=== PATIENT | male | born 1965 | race Caucasian/White ===

== ENCOUNTER 2016-07-23 07:39 | Observation (INO) ==
[2016-07-23] MEDS ORDERED: 0.9 % Sodium Chloride 1,000 ML IVC ONE (07:59)
[2016-07-23] MEDS ORDERED: Ondansetron 4 MG/2 ML VIAL IVP ONE (07:59)
--- NOTE | 2016-07-23 08:01 | Emergency Department Note ---
Disposition Clinical Impression: Dizziness, JERRY (acute kidney injury), Transaminitis, Anemia Hypotension Qualifiers: Hypotension type: unspecified hypotension type Qualified Code(s): I95.9 - Hypotension, unspecified Disposition: Admitted As Inpatient Condition: Fair General Adult HPI - General Chief complaint: ED Dizziness Stated complaint: "dizzy, tingles, weak" Time Seen by Provider: 07/23/16 07:49 Source: patient Mode of arrival: ambulatory Limitations: no limitations Nursing Notes Reviewed: Yes Vital Signs Reviewed: Yes - History of Present Illness HPI Narrative: 50-year-old male history of hypertension diabetes presents for evaluation of "dizziness and tingling". Patient states that symptoms started just prior to arrival. Notes that dizziness is described as more weakness and feels like he is going to pass out. No room spinning. Reports no recent falls. States he was recently started on antibiotic which he was not able to recall and family states that it was ciprofloxacin for presumed flulike illness. Patient denies any nausea or vomiting. No chest pain or short of breath. Reports no other new medication changes. Pain Scale: 0 - Related Data Home Medications Medication Instructions Recorded Confirmed Albuterol Sulfate [Proair Hfa] 2 puff IH Q4H PRN 06/28/15 07/23/16 Fluticasone Propionate Nasal 100 mcg NS DAILY 06/28/15 07/23/16 [Flonase] Montelukast [Singulair] 10 mg PO DAILY 06/28/15 07/23/16 Omeprazole [PriLOSEC] 40 mg PO DAILY 06/28/15 07/23/16 Ranitidine HCl [Zantac] 300 mg PO BID 06/28/15 07/23/16 Tizanidine HCl [Zanaflex] 4 mg PO BID PRN 06/28/15 07/23/16 Buspirone HCl [Buspar] 10 mg PO BID 07/23/16 07/23/16 Cetirizine HCl [All Day Allergy] 10 mg PO DAILY 07/23/16 07/23/16 Ferrous Sulfate [Iron] 325 mg PO DAILY 07/23/16 07/23/16 Insulin Glargine,Hum.rec.anlog 70 unit SQ HS 07/23/16 07/23/16 [Lantus Solostar] Lisinopril/Hydrochlorothiazide 1 each PO DAILY 07/23/16 07/23/16 [Zestoretic 20-12.5 mg Tablet] Metformin HCl [Metformin HCl ER] 2,000 mg PO DAILY 07/23/16 07/23/16 Pravastatin Sodium [Pravachol] 40 mg PO DAILY 07/23/16 07/23/16 Propranolol HCl 40 mg PO BID 07/23/16 07/23/16 Sertraline [Zoloft] 50 mg PO DAILY 07/23/16 07/23/16 Sucralfate [Carafate] 1 gm PO BID 07/23/16 07/23/16 Previous Rx's Medication Instructions Recorded Aspirin 81 mg PO DAILY tab.chew 06/28/15 Lovastatin 20 mg PO DAILY #30 tablet 06/28/15 Metoprolol [Lopressor] 25 mg PO BID #60 tablet 06/28/15 Benzonatate [Tessalon] 200 mg PO TID PRN #20 capsule 07/21/16 Ciprofloxacin [Cipro] 500 mg PO BID 10 Days 07/21/16 MetroNIDAZOLE [Flagyl] 500 mg PO TID 10 Days 07/21/16 Tramadol HCl [Ultram] 50 mg PO BID PRN #4 tab 07/21/16 Allergies Allergy/AdvReac Type Severity Reaction Status Date / Time No Known Allergies Allergy Verified 07/23/16 07:43 All systems ED: reviewed and negative except as stated. Constitutional: Reports: as per HPI, fever Eyes: Reports: as per HPI ENT ED: Reports: as per HPI Cardiovascular: Reports: as per HPI. Denies: chest pain Respiratory: Reports: as per HPI. Denies: dyspnea Gastrointestinal: Reports: as per HPI. Denies: abdominal pain, nausea, vomiting Genitourinary: Reports: as per HPI Musculoskeletal: Reports: as per HPI Integumentary: Reports: as per HPI Neurological: Reports: as per HPI Psychiatric: Reports: as per HPI Endocrine: Reports: as per HPI Hematological/Lymphatic: Reports: as per HPI Past Medical History - Past Medical History Medical history: Reports: GERD, hyperlipidemia, hypertension Surgical history: Reports: knee replacement, other Psychiatric history: Reports: no psych history - Social History Smoking Status: Never smoker Smokeless Tobacco Status: No Alcohol use: Reports: heavy, recent Drug use: Reports: none Physical Exam - General Limitations: no limitations General appearance: alert, in no apparent distress - Head Head exam: atraumatic, normocephalic, normal inspection - Eye Eye exam: Present: normal appearance, PERRL, EOMI. Absent: nystagmus - ENT ENT exam: normal exam, mucous membranes moist - Neck Neck exam: Present: normal inspection, trachea midline - Chest Chest inspection: Present: normal inspection, symmetric chest wall rise - Respiratory Respiratory exam: Present: normal lung sounds bilaterally. Absent: respiratory distress - Cardiovascular Cardiovascular exam: Present: regular rate, normal rhythm - Abdominal Exam Abdominal exam: Present: soft, Non-Tender. Absent: tenderness - Extremities Exam Extremities exam: Present: normal inspection. Absent: pedal edema - Expanded Lower Extremity Exam Neurovascular/Tendon exam: Present: normal capillary refill - Neurological Exam Neurological exam: Present: alert, oriented X3 - Skin Skin exam: Present: warm, dry, intact, normal color Course Course Narrative: Patient seen and examined. Patient's dizziness is more presyncopal. Patient has a nonfocal neurologic exam. Patient will get EKG, chest x-ray, troponins as well as basic lab work. Patient was recently started on antibiotic ciprofloxacin for infection which he was not entirely sure of. Possibly side effect related. - Reevaluation(s) Reevaluation #1: Patient is resting comfortably. No acute distress. Time: 09:21 Vital Signs Temperature 97.7 F 07/23/16 07:40 Pulse Rate 61 07/23/16 07:40 Respiratory Rate 17 07/23/16 07:40 Blood Pressure 91/56 07/23/16 07:40 O2 Sat by Pulse Oximetry 99 07/23/16 07:40 Temperature 97.7 F 07/23/16 15:33 Pulse Rate 71 07/23/16 15:33 Respiratory Rate 16 07/23/16 15:33 Blood Pressure 128/77 07/23/16 15:33 O2 Sat by Pulse Oximetry 93 07/23/16 15:33 Oxygen Delivery Oxygen Delivery Room Air Medical Decision Making - [facility] Narrative Medical decision making narrative: 50-year-old male is for evaluation of dizziness and generally not feeling well. Patient had a nonfocal neurologic exam. Dizziness appear to be more presyncope. Patient typically has high blood pressures documented from chart review. Patient presented with hypotension with systolics in the 90s. He did respond to fluid boluses. Patient had screening lab work looking for sources of infection. Head CT was not obtained because it is a nonfocal exam. Patient had chest x-ray was EKG and troponin. Patient continued to not feel well. at bedside is persistent that there is something wrong and he has been here before with similar symptoms with out any specific diagnosis. Given this information the patient will be admitted to the hospital service for further evaluation and monitoring. CT of the chest and pelvis was performed in the emergency department. Those findings were obtained upstairs on admission. - Lab Data Lab results reviewed: Yes I reviewed the patient's lab results. Result diagrams: 07/23/16 08:10 07/23/16 08:10 Lab Results 07/23/16 07/23/16 07/23/16 Range/Units 08:10 08:10 08:10 WBC 4.9 (4.3-11.1) K/mcL RBC 4.22 (4.19-5.50) M/mcL Hgb 12.5 L (12.9-16.9) g/dL Hct 37.7 (37.5-50.1) % MCV 89.3 (83.0-100.0) fL MCH 29.6 (28.0-33.3) pg MCHC 33.2 (31.6-35.5) g/dL RDW 13.9 (11.5-14.5) % Plt Count 171 (140-400) K/mcL MPV 11.1 (9.4-12.4) fL Seg Neutrophils % 54.0 % Lymphocytes % 40.0 % Monocytes % 2.0 % Eosinophils % 2.0 % Metamyelocytes % 2.0 H (0) % Neutrophils # 2.7 (1.6-8.9) K/mcL Lymphocytes # 2.0 (0.6-4.6) K/mcL Monocytes # 0.1 (0.0-1.3) K/mcL Eosinophils # 0.1 (0.0-0.6) K/mcL Hypersegmented Neuts Present A (Not Present) Reactive Lymphocytes Present A (Not Present) Platelet Estimate Normal (Normal) Polychromasia 1+ A (Not Present) Macrocytosis Present A (Not Present) Spherocytes 1+ A (Not Present) Sodium 135 L (136-145) mEq/L Potassium 4.3 (3.5-4.5) mEq/L Chloride 102 (98-109) mEq/L Carbon Dioxide 23 (19-29) mEq/L BUN 23 (8-26) mg/dL Creatinine 1.68 H (0.72-1.25) mg/dL Est GFR ( Amer) 53 L (> 60) Est GFR (Non-Af Amer) 44 L (> 60) BUN/Creatinine Ratio 14 (6-26) Glucose 149 H (70-99) mg/dL Calculated Osmolality 286 (280-300) Lactic Acid (0.5-2.2) mmol/L Calcium 9.0 (8.6-10.8) mg/dL Total Bilirubin 0.5 (0.2-1.2) mg/dL AST 139 H (5-34) Units/L ALT 152 H (0-55) Units/L Alkaline Phosphatase 140 H (38-126) Units/L Troponin I 0.00 (0-0.03) ng/mL Serum Total Protein 7.4 (6.0-8.3) g/dL Albumin 3.3 L (3.5-5.0) g/dL Globulin 4.1 H (2.4-3.5) g/dL Albumin/Globulin Ratio 0.8 L (1.1-2.2) TSH 4.996 H (0.350-4.840) mcIU/mL Free T4 0.97 (0.70-1.48) ng/dl Random Cortisol 14.3 mcg/dl Urine Color (Yellow) Urine Clarity (Clear) Urine pH (5.0-8.0) pH Units Ur Specific Godley (1.010-1.025) Urine Protein (Neg-Trace) mg/dL Urine Glucose (UA) (Normal) mg/dL Urine Ketones (Negative) mg/dL Urine Blood (Negative) Urine Nitrite (Negative) Urine Bilirubin (Negative) Urine Urobilinogen (Normal) mg/dL Ur Leukocyte Esterase (Negative) Urine Microscopic RBC (0-3) per hpf Urine Microscopic WBC (0-3) per hpf Ur Squamous Epith Cells (None-Few) per lpf Urine Bacteria (None-Few) per hpf Hyaline Casts (None-Few) per lpf 07/23/16 07/23/16 Range/Units 08:35 09:45 WBC (4.3-11.1) K/mcL RBC (4.19-5.50) M/mcL Hgb (12.9-16.9) g/dL Hct (37.5-50.1) % MCV (83.0-100.0) fL MCH (28.0-33.3) pg MCHC (31.6-35.5) g/dL RDW (11.5-14.5) % Plt Count (140-400) K/mcL MPV (9.4-12.4) fL Seg Neutrophils % % Lymphocytes % % Monocytes % % Eosinophils % % Metamyelocytes % (0) % Neutrophils # (1.6-8.9) K/mcL Lymphocytes # (0.6-4.6) K/mcL Monocytes # (0.0-1.3) K/mcL Eosinophils # (0.0-0.6) K/mcL Hypersegmented Neuts (Not Present) Reactive Lymphocytes (Not Present) Platelet Estimate (Normal) Polychromasia (Not Present) Macrocytosis (Not Present) Spherocytes (Not Present) Sodium (136-145) mEq/L Potassium (3.5-4.5) mEq/L Chloride (98-109) mEq/L Carbon Dioxide (19-29) mEq/L BUN (8-26) mg/dL Creatinine (0.72-1.25) mg/dL Est GFR ( Amer) (> 60) Est GFR (Non-Af Amer) (> 60) BUN/Creatinine Ratio (6-26) Glucose (70-99) mg/dL Calculated Osmolality (280-300) Lactic Acid 1.8 (0.5-2.2) mmol/L Calcium (8.6-10.8) mg/dL Total Bilirubin (0.2-1.2) mg/dL AST (5-34) Units/L ALT (0-55) Units/L Alkaline Phosphatase (38-126) Units/L Troponin I (0-0.03) ng/mL Serum Total Protein (6.0-8.3) g/dL Albumin (3.5-5.0) g/dL Globulin (2.4-3.5) g/dL Albumin/Globulin Ratio (1.1-2.2) TSH (0.350-4.840) mcIU/mL Free T4 (0.70-1.48) ng/dl Random Cortisol mcg/dl Urine Color Dark Yellow (Yellow) Urine Clarity Cloudy A (Clear) Urine pH 5.5 (5.0-8.0) pH Units Ur Specific [place]ley 1.021 (1.010-1.025) Urine Protein Trace (Neg-Trace) mg/dL Urine Glucose (UA) Normal (Normal) mg/dL Urine Ketones Trace H (Negative) mg/dL Urine Blood Negative (Negative) Urine Nitrite Negative (Negative) Urine Bilirubin Small H (Negative) Urine Urobilinogen Normal (Normal) mg/dL Ur Leukocyte Esterase Small H (Negative) Urine Microscopic RBC 0-3 (0-3) per hpf Urine Microscopic WBC 3-5 H (0-3) per hpf Ur Squamous Epith Cells Many H (None-Few) per lpf Urine Bacteria Few (None-Few) per hpf Hyaline Casts Few (None-Few) per lpf - Radiology Data Radiology results reviewed: Yes I reviewed the patient's radiology results. Chest X-Ray 07/23/16 07:59 IMPRESSION: No acute pulmonary finding. Stable mild cardiomegaly. D/ / Vijay Simpson MD / Vijay Simpson MD Interpreting Provider: Vijay Simpson MD Abdomen/Pelvis CT 07/23/16 15:30 IMPRESSION: 1. No acute intra-abdominal or intrapelvic process. 2. No acute bowel inflammation or obstruction. 3. No urinary stones or hydronephrosis. 4. Hepatic steatosis. D/ / 07/23/2016 16:35:11 Wesley Copeland MD / Karli Rodriguez Interpreting Provider: Wesley Copeland MD Chest CT 07/23/16 15:30 IMPRESSION: 1. Multiple scattered nodular ground-glass opacities within the bilateral upper lobes are most likely infectious or inflammatory in etiology, and most likely represent an acute multifocal pneumonia. However, suggest appropriate clinical treatment, and short-term chest CT follow-up in 6-8 weeks to ensure resolution of these ground-glass nodular opacities. 2. Additional scattered subcentimeter bibasilar pulmonary nodules most likely reflect benign granulomata. However, these will require long-term chest CT follow-up to ensure stability, as suggested below. 3. Mild mediastinal lymphadenopathy is likely benign and reactive in etiology. However, this should be followed to ensure stability. RECOMMENDATIONS: Fleischner Society guidelines for follow-up and management of incidentally detected pulmonary nodules: Multiple Solid Nodules: Nodule size equals 6-8 mm In a low-risk patient, CT at 3-6 months, then consider CT at 18-24 months. In a high-risk patient, CT at 3-6 months, then CT at 18-24 months. - Low risk patients include individuals with minimal or absent history of smoking and other known risk factors. - High risk patients include individuals with a history or smoking or known risk factors. Radiology 2017 http://pubs.rsna.org/doi/full/10.1148/radiol.2339834636 D/ / 07/23/2016 16:21:47 Wesley Copeland MD / Karli Rodriguez Interpreting Provider: Wesley Copeland MD - EKG Data EKG #1 EKG shows normal: sinus rhythm Rhythm: NSR [place]/QRS: normal When compared to previous EKG there are: no significant changes Interpretation: no acute changes, unchanged when compared to prior tracing (date ) Clementina - Clementina Situation: Demographics, MOA Background: Presenting Complaint Assessment: Vital Signs, Course and respsone to treatment, Patient/Family Expectation Recommendation: Barrier(s) to disposition, Recommendation based on pending studies, treatments, or consults Clementina Report Given to: Dr. Antoine Mcrae Repor Time: 11:24
[2016-07-23 08:20] LABS: Eosinophils # 0.1 K/mcL (0.0-0.6); Hematocrit 37.7 % (37.5-50.1); Hemoglobin 12.5 g/dL (12.9-16.9); Mean Corpuscular HGB Conc 33.2 g/dL (31.6-35.5); Mean Corpuscular Hemoglobin 29.6 pg (28.0-33.3); Mean Corpuscular Volume 89.3 fL (83.0-100.0); Mean Platelet Volume 11.1 fL (9.4-12.4); Platelet Count 171 K/mcL (140-400); Red Blood Count 4.22 M/mcL (4.19-5.50); Red Cell Distribution Width 13.9 % (11.5-14.5)
--- NOTE | 2016-07-23 08:22 | Emergency Department Note ---
START Narrative - START START: I examined this patient and my medical decision-making was reviewed with the ELEVATOR CONDUCTOR/PA/Advanced Practice Nurse/Resident Physician. I agree with the documented findings, disposition and treatment plan as described except to the extent set forth below. ED attending note: Patient seen with emergency medicine resident Dr. Serrano. Please see a copy of his note for details of the H&P, evaluation, management and disposition of this patient. We independently had [id number] contact with the patient Briefly: 50-year-old male history of elevated cholesterol and high blood pressure presents with near syncope feeling sick to his stomach and just weak and dizzy. This has been going on for several days he has been on Cipro for a URI of some sort. Patient is hypotensive 90 over 60s. Not diaphoretic or pale. EKG shows a sinus bradycardia in the 60s. Nonspecific ST-T changes neurologically nonfocal. Patient getting IV fluid bolus troponin lactate CMP. Provided 45 minutes critical care service for this patient. Disposition pending.
[2016-07-23 08:35] LABS: Alanine Aminotransferase 152 Units/L (0-55); Albumin 3.3 g/dL (3.5-5.0); Albumin/Globulin Ratio 0.8 (1.1-2.2); Alkaline Phosphatase 140 Units/L (38-126); Aspartate Amino Transferase 139 Units/L (5-34); BUN/Creatinine Ratio 14 (6-26); Bilirubin,Total 0.5 mg/dL (0.2-1.2); Blood Urea Nitrogen 23 mg/dL (8-26); Carbon Dioxide 23 mEq/L (19-29); Chloride 102 mEq/L (98-109); Globulin 4.1 g/dL (2.4-3.5); Glucose 149 mg/dL (70-99); Osmolality,Calculated 286 (280-300); Potassium 4.3 mEq/L (3.5-4.5); Sodium 135 mEq/L (136-145); Total Protein 7.4 g/dL (6.0-8.3); eGFR For African Americans 53 (> 60); eGFR For Non-African Americans 44 (> 60)
[2016-07-23 08:37] LABS: Monocytes # 0.1 K/mcL (0.0-1.3); Neutrophils # 2.7 K/mcL (1.6-8.9)
[2016-07-23 08:38] LABS: Hypersegmented Neutrophils Present (Not Present); Platelet Estimate Normal (Normal); Polychromasia 1+ (Not Present); Reactive Lymphocytes Present (Not Present)
[2016-07-23 08:39] LABS: Macrocytosis Present (Not Present); Spherocytes 1+ (Not Present)
[2016-07-23 10:06] LABS: Bilirubin,Urine Small (Negative); Blood,Urine Negative (Negative); Clarity,Urine Cloudy (Clear); Color,Urine Dark Yellow (Yellow); Glucose,Urine (UA) Normal (Normal); Ketones,Urine Trace mg/dL (Negative); Leukocyte Esterase,Urine Small (Negative); Nitrite,Urine Negative (Negative); PH,Urine 5.5 pH Units (5.0-8.0); Protein,Urine Trace mg/dL (Neg-Trace); Specific Gravity,Urine 1.021 (1.010-1.025); Urobilinogen,Urine Normal (Normal)
[2016-07-23 10:07] LABS: RBC,Urine 0-3 per hpf (0-3); Squamous Epithelial Cell,Urine Many per lpf (None-Few)
[2016-07-23 10:30] LABS: Bacteria,Urine Few per hpf (None-Few); Hyaline Casts,Urine Few per lpf (None-Few)
--- NOTE | 2016-07-23 13:22 | Internal Med History&Physical ---
Date of Encounter: 07/23/16 Time of Encounter: 13:19 Assessment and Plan (1) Lightheadedness Current visit: Yes Status: Acute This is due to ortho statuses his blood pressure was 90/50 in the emergency room. Which may be related to blood pressure medications and setting of some dehydration. However will have trouble without sepsis. He was started yesterday on ciprofloxacin and Flagyl for suspected diverticulitis. However on my exam today patient has no tenderness in his abdomen. mentioned that she was concerned because of temperatures at home up to 103. No clear infectious cause. He has some cough which maybe you to bronchitis but there is no pneumonia. I will check CT scan of the chest abdomen and pelvis without IV contrast because of his kidney injury. To look for infectious source. mentioned that he has been functionally declining over the past 6 months. Transthoracic echocardiogram will also be performed to look for any vegetations given fevers. However the patient is not toxic. Blood pressure medications will be held. Hydration. We will also look for evidence of Shiite bleeding. His hemoglobin is stable will check occult blood in stool. I would also check cortisol level to look for adrenal insufficiency. (2) JERRY (acute kidney injury) Current visit: Yes Status: Acute hydration (3) Diabetes mellitus type 2 in obese Current visit: Yes Status: Acute Sliding scale insulin. Continue smaller dose of long-acting insulin (4) Transaminitis Current visit: Yes Status: Acute Maybe due to fatty liver from uncontrolled diabetes. Last A1C was 9. I will hold statins. Check tylenol level. CT scan will also evaluate the hepatobiliary area Internal Medicine - H&P: HPI Chief complaint: lightheadedness History of present illness: Mr. Aguilar is a 50 year old male with a history of diabetes mellitus type II, hypertension, dyslipidemia was been having some functional decline over the past few month presents to the emergency room today with the main complain of lightheadedness. Patient was at work started noticing lightheaded. He is going to faint but did not. Is also been feeling generally weak and lethargic. He was seen outside emergency room yesterday because of left lower quadrant abdominal pain and was treated with ciprofloxacin and Flagyl empirically for suspected diverticulitis. He currently denies any abdominal pain. He has not noticed any hematemesis, or hematochezia. He is a multiple blood pressure medications including metoprolol, propranolol, lisinopril, hydrochlorothiazide. His systolic blood pressure was 90/50 on arrival to the emergency room. His blood pressure usually runs high. He has responded to 1 L of fluid given in the emergency room. He was alert oriented times 3 during my interview. Patient also takes tramadol Zanaflex at home. was concerned because the past few days he was having fevers of 103 at home. He denies any prior cardiac history. He hidden angiogram 10 years ago that showed only 30% occlusion in a vessel. Minimal cough sputum production. No diarrhea. No nausea or vomiting. No neck pain or stiffness. No confusion. Past Med Surg Social Fam HX - Past Medical History Medical history: GERD, hyperlipidemia, hypertension Psychiatric history: no psych history - Past Surgical History Surgical History: knee replacement, other - Social History Smoking Status: Never smoker Smokeless Tobacco Status: No Alcohol use: heavy, recent Drug use: none - Family History Father Living Status: Still Living Hx Family Cardiac Disorders: Yes (4way bypass at age 45) Brother Living Status: Still Living Hx Family Cardiac Disorders: Yes (PA/Stents at 48) Mother Living Status: Still Living Hx Family Neurologic Disorders: Yes (CVA x2, multiple TIAs) Internal Medicine - H&P: Meds Albuterol Sulfate [Proair Hfa] 2 puff IH Q4H PRN 06/28/15 [History] Aspirin 81 mg PO DAILY tab.chew 06/28/15 [Rx] Fluticasone Propionate Nasal [Flonase] 100 mcg NS DAILY 06/28/15 [History] Lovastatin 20 mg PO DAILY #30 tablet 06/28/15 [Rx] Metoprolol [Lopressor] 25 mg PO BID #60 tablet 06/28/15 [Rx] Montelukast [Singulair] 10 mg PO DAILY 06/28/15 [History] Omeprazole [PriLOSEC] 40 mg PO DAILY 06/28/15 [History] Ranitidine HCl [Zantac] 300 mg PO BID 06/28/15 [History] Tizanidine HCl [Zanaflex] 4 mg PO BID PRN 06/28/15 [History] Benzonatate [Tessalon] 200 mg PO TID PRN #20 capsule 07/21/16 [Rx] Ciprofloxacin [Cipro] 500 mg PO BID 10 Days 07/21/16 [Rx] MetroNIDAZOLE [Flagyl] 500 mg PO TID 10 Days 07/21/16 [Rx] Tramadol HCl [Ultram] 50 mg PO BID PRN #4 tab 07/21/16 [Rx] Buspirone HCl [Buspar] 10 mg PO BID 07/23/16 [History] Cetirizine HCl [All Day Allergy] 10 mg PO DAILY 07/23/16 [History] Ferrous Sulfate [Iron] 325 mg PO DAILY 07/23/16 [History] Insulin Glargine,Hum.rec.anlog [Lantus Solostar] 70 unit SQ HS 07/23/16 [History ] Lisinopril/Hydrochlorothiazide [Zestoretic 20-12.5 mg Tablet] 1 each PO DAILY [History] Metformin HCl [Metformin HCl ER] 2,000 mg PO DAILY 07/23/16 [History] Pravastatin Sodium [Pravachol] 40 mg PO DAILY 07/23/16 [History] Propranolol HCl 40 mg PO BID 07/23/16 [History] Sertraline [Zoloft] 50 mg PO DAILY 07/23/16 [History] Sucralfate [Carafate] 1 gm PO BID 07/23/16 [History] Allergies No Known Allergies Allergy (Verified 07/23/16 07:43) All Systems PM: A 10-system review of systems was performed and is negative for pertinent findings except as documented above in the HPI. Review of systems: 10 point review of systems is negative except for HPI - Constitutional Vitals: Temp Pulse Resp BP Pulse Ox 97.6 F 64 17 112/72 94 07/23/16 13:16 07/23/16 13:16 07/23/16 13:16 07/23/16 13:16 07/23/16 13:16 Exam: Gen.: patient is alert oriented times 3 not in distress. Cardiac: normal S1 S2 no additional sounds or murmurs chest: fair air entry. scattered coarse breath sounds. no active wheezing. No crackles or bronchial breathing. abdomen: soft nontender nondistended normal bowel sounds neuro: no focal deficit Internal Med - H&P Results - Labs CBC & Chem 7: 07/23/16 08:10 07/23/16 08:10
[2016-07-23] MEDS: 0.9 % Sodium Chloride 1,000 ML IVC SCH (13:53)
[2016-07-23 14:32] LABS: Thyroid Stimulating Hormone 4.996 mcIU/mL (0.350-4.840)
--- NOTE | 2016-07-23 16:49 | Electrocardiograph Report ---
[place] [id number] Test Date: 2016-07-23 Pat Name: Rick Aguilar Department: 104 Room: 3B21 Gender: M Patient Experience Coordinator: KIP : 1965 Requested By: Enrike Serrano Order Number: [id number] Reading MD: Wilfred Claire DO Measurements Intervals [place] Rate: 61 P: -2 MN: 144 QRS: 64 QRSD: 100 T: 77 QT: 482 QTc: 485 Interpretive Statements SINUS RHYTHM NONSPECIFIC T-WAVE ABNORMALITY PROLONGED QT INTERVAL Electronically Signed On 07-23-2016 16:47:24 EDT by Wilfred Claire DO
[2016-07-23] MEDS: Insulin LISPRO 300 UNITS/3 ML VIAL SQ SCH (17:27)
[2016-07-23] MEDS: *HR* HYDROcodone/Acet 5/325 mg TABLET PO PRN (18:29)
[2016-07-23] MEDS: Azithromycin 500 MG in D5% in Water 250 ML IVPB SCH (20:30)
[2016-07-23] MEDS: Insulin DETEMIR 100 UNIT/ML X5UNITS SQ SCH (22:02)
[2016-07-23] MEDS: Sucralfate 1 GM TABLET PO SCH (22:48)
[2016-07-23] MEDS: Famotidine 20 MG TABLET PO SCH (22:49)
[2016-07-24] MEDS: *HR* HYDROcodone/Acet 5/325 mg TABLET PO PRN ×4 (00:08→20:20)
[2016-07-24] MEDS: 0.9 % Sodium Chloride 1,000 ML IVC SCH (04:17)
[2016-07-24 05:09] LABS: Basophils % 0.4 %; Eosinophils # 0.1 K/mcL (0.0-0.6); Eosinophils % 2.3 %; Hematocrit 35.7 % (37.5-50.1); Immature Granulocytes % 0.9 % (0-4); Lymphocytes # 1.7 K/mcL (0.6-4.6); Lymphocytes % 32.2 %; Mean Corpuscular HGB Conc 33.6 g/dL (31.6-35.5); Mean Corpuscular Hemoglobin 30.2 pg (28.0-33.3); Mean Corpuscular Volume 89.7 fL (83.0-100.0); Mean Platelet Volume 11.8 fL (9.4-12.4); Monocytes # 0.5 K/mcL (0.0-1.3); Monocytes % 8.9 %; Neutrophils # 2.9 K/mcL (1.6-8.9); Platelet Count 173 K/mcL (140-400); Red Blood Count 3.98 M/mcL (4.19-5.50); Red Cell Distribution Width 13.5 % (11.5-14.5); Segmented Neutrophils % 55.3 %
[2016-07-24 05:11] LABS: Hemoglobin A1C 7.7 %
[2016-07-24 05:47] LABS: Sodium 136 mEq/L (136-145)
[2016-07-24 05:48] LABS: BUN/Creatinine Ratio 18 (6-26); Blood Urea Nitrogen 17 mg/dL (8-26); Calcium 8.7 mg/dL (8.6-10.8); Carbon Dioxide 22 mEq/L (19-29); Chloride 104 mEq/L (98-109); Glucose 134 mg/dL (70-99); Magnesium 1.8 mg/dL (1.6-2.6); Osmolality,Calculated 286 (280-300); Potassium 3.8 mEq/L (3.5-4.5); eGFR For African Americans > 60 (> 60); eGFR For Non-African Americans > 60 (> 60)
[2016-07-24 06:09] LABS: Large Platelets Present (Not Present); Platelet Estimate Normal (Normal); Reactive Lymphocytes Present (Not Present)
[2016-07-24] MEDS: Sucralfate 1 GM TABLET PO SCH ×2 (08:04→21:12)
[2016-07-24] MEDS: Aspirin 81 MG TAB.CHEW PO SCH (08:04)
[2016-07-24] MEDS: Famotidine 20 MG TABLET PO SCH ×2 (08:04→21:13)
[2016-07-24] MEDS: Insulin LISPRO 300 UNITS/3 ML VIAL SQ SCH ×3 (08:05→17:57)
[2016-07-24] MEDS ORDERED: traMADol 50 MG TABLET PO PRN ×2 (08:12→13:22)
[2016-07-24] MEDS ORDERED: tiZANidine 4 MG TABLET PO PRN (08:12)
[2016-07-24 08:28] LABS: Acetaminophen < 1.0 mcg/mL (10-30)
[2016-07-24] MEDS: Fluticasone Propionate Nasal 50 MCG/SPRAY BOTTLE NS SCH (08:58)
[2016-07-24] MEDS: Loratadine 10 MG TABLET PO SCH (08:59)
[2016-07-24] MEDS: Lisinopril 20 MG TABLET PO SCH (08:59)
--- NOTE | 2016-07-24 09:23 | ECHO - Doppler Report ---
Echocardiogram Name: Rick Aguilar Date of Study: 07/23/2016 Date: 1965 Ht: 68.0 in Medical Record#: [id number] Age: 50 Wt: 230.0 lb Gender: Male BSA: 2.17 Order #: [id number] Location: [facility] Room #: 3B21 Reading Physician: Ezequiel Colin MD, [facility] Extractor Plant Operator: Jory Palacios Ordering Physician: Gaurav Schultz MD Primary Physician: Ascencion De Luna DO Indications: looking for vegetations Impressions: Normal LV systolic function, LVEF 60%. Normal left ventricular diastolic function. Normal right ventricular size and function. No evidence of pulmonary hypertension. No significant valvular dysfunction. No evidence of valvular vegetations. Left Ventricular Wall Motion: Rest Echo Findings All wall segments showed normal motion. Findings: Study Quality * Technically adequate exam. ECG Findings * Normal sinus rhythm. Left Ventricle * Normal LV systolic function, LVEF 60%. * Normal LV chamber size and wall thickness. * Normal left ventricular diastolic function. Right Ventricle * Normal right ventricular size and function. Left Atrium * Normal left atrial size. Right Atrium * Normal right atrial size. Aorta * Normally sized aortic root. Pericardium * There is no pericardial effusion present. IVC * Normal IVC dimensions and inspiratory collapse. Aortic Valve * Trileaflet aortic valve. * No aortic stenosis. * No aortic regurgitation. Mitral Valve * Normal mitral valve structure. * No mitral stenosis. * Trace mitral regurgitation. Tricuspid Valve * Normal tricuspid valve structure. * No tricuspid stenosis. * Trace tricuspid regurgitation. * No evidence of pulmonary hypertension. Pulmonic Valve * Pulmonic valve not well visualized. * No pulmonic stenosis. * No pulmonic regurgitation. History Hypertension Diabetes Hypercholesteremia Family History of CAD 06/27/2016 a Previous Echo was performed. Measurements: BP: 144/ 89 2D Normal Values RVIDd: 3.70 cm IVSd: 1.00 cm 0.6 - 1.0 cm LVIDd: 4.90 cm 3.7 - 5.6 cm LVPWd: .90 cm 0.6 - 1.1 cm LVIDs: 3.40 cm 1.5 - 3.6 cm AO: 3.20 cm < 4.0 cm %FS: 30.60 cm >25 % LA volume: 64 Mitral Valve Peak E:1.01 m/sec Peak A:1.05 m/sec E/A Ratio:1 Tricuspid Valve TV Regurg Peak Grad: 24.00mmHg TV Regurg Peak Casepr: 2.47m/sec Updated by Ezequiel Colin MD, [facility] on 07/24/2016 9:18:57 AM electronically signed on 07/24/2016 9:19:21 AM with status of Final Wall Motion Hay[place]: 1=Normal, 2=Hypokinesis, 3=Akinesis, 4=Dyskinesis, 5=Aneurysmal, 6=Hyperkinetic, X=Not Visualized (Blank)=Missing
[2016-07-24] MEDS ORDERED: Chloraseptic Spray 177 ML BOTTLE MM PRN (12:05)
--- NOTE | 2016-07-24 13:06 | Internal Med Progress Note ---
Date of Encounter: 07/24/16 Time of Encounter: 09:45 - Assessment and plan (1) Multifocal pneumonia Current Visit: Yes Status: Acute Assessment and plan: Chest CT consistent with multifocal pneumonia unknown etiology. Patient is tolerating room air. Patient with nonproductive cough. Will continue Azithromycin and Ceftriaxone and will observe overnight. ITS Impressions Chest CT 07/23/16 15:30 IMPRESSION: 1. Multiple scattered nodular ground-glass opacities within the bilateral upper lobes are most likely infectious or inflammatory in etiology, and most likely represent an acute multifocal pneumonia. However, suggest appropriate clinical treatment, and short-term chest CT follow-up in 6-8 weeks to ensure resolution of these ground-glass nodular opacities. 2. Additional scattered subcentimeter bibasilar pulmonary nodules most likely reflect benign granulomata. However, these will require long-term chest CT follow-up to ensure stability, as suggested below. 3. Mild mediastinal lymphadenopathy is likely benign and reactive in etiology. However, this should also be followed to ensure stability. RECOMMENDATIONS: Fleischner Society guidelines for follow-up and management of incidentally detected pulmonary nodules: Multiple Solid Nodules: Nodule size equals 6-8 mm In a low-risk patient, CT at 3-6 months, then consider CT at 18-24 months. In a high-risk patient, CT at 3-6 months, then CT at 18-24 months. - Low risk patients include individuals with minimal or absent history of smoking and other known risk factors. - High risk patients include individuals with a history or smoking or known risk factors. Radiology 2017 http://pubs.rsna.org/doi/full/10.1148/radiol.[email or web address] D/ /23/2016 16:21:47 Wesley Copeland MD / Karli Rodriguez Interpreting Provider: Wesley Copeland MD (2) JERRY (acute kidney injury) Current Visit: Yes Status: Resolved (3) Hypertension Current Visit: Yes Status: Chronic Assessment and plan: Patient was hypotensive upon arrival so all for his antihypertensive medications were held. He became hypertensive and 2 of his medications were resumed. At home, he is on metoprolol 25 mg twice a day, lisinopril 20 mg daily , HCTZ 12.5 mg daily, and propranolol 40 mg twice a day. HCTZ and propranolol held at this time. Acute kidney injury resolved, lisinopril continued as well as his metoprolol. We will continue to adjust his medications. We will observe him overnight for optimal blood pressure control. Qualifiers: Hypertension type: essential hypertension Qualified Code(s): I10 - Essential (primary) hypertension (4) Hypotension Current Visit: Yes Status: Resolved (5) Dizziness Current Visit: Yes Status: Resolved Assessment and plan: Echocardiogram unremarkable with ejection fraction of 60%. Echocardiogram impressions: Normal LV systolic function, LVEF 60%. Normal left ventricular diastolic function. Normal right ventricular size and function. No evidence of pulmonary hypertension. No significant valvular dysfunction. Evidence of valvular vegetations. (6) Abdominal pain Current Visit: No Status: Acute Assessment and plan: Patient with tenderness to palpation to the epigastric and right upper quadrant. Mild transaminitis noted, will trend. Abdominal CT negative for acute processes. He has tolerated a regular diet since admission. Of note, he had a colonoscopy last week outpatient that was negative. ITS Impressions Abdomen/Pelvis CT 07/23/16 15:30 IMPRESSION: 1. No acute intra-abdominal or intrapelvic process. 2. No acute bowel inflammation or obstruction. 3. No urinary stones or hydronephrosis. 4. Hepatic steatosis. D/ / 07/23/2016 16:35:11 Wesley Copeland MD / Karli Rodriguez Interpreting Provider: Wesley Copeland MD (7) Lightheadedness Current Visit: Yes Status: Resolved (8) Abnormal urinalysis Current Visit: Yes Status: Acute Assessment and plan: Culture pending. (9) CAD (coronary artery disease) Current Visit: No Status: Chronic Assessment and plan: Patient denies chest pain. Qualifiers: Coronary Disease-Associated Artery/Lesion type: [place] artery [place] vs. transplanted heart: [place] heart Associated angina: without angina Qualified Code(s): I25.10 - Atherosclerotic heart disease of [place] coronary artery without angina pectoris (10) Anemia Current Visit: No Status: Chronic Assessment and plan: Mild. Acute on chronic. No signs of active bleeding. We will trend. (11) Transaminitis Current Visit: Yes Status: Chronic Assessment and plan: Acute on chronic since September 2015. Will trend. Patient with known history of alcohol usage per day. No signs of withdrawal noted thus far. We will trend. (12) Diverticulosis Current Visit: No Status: Chronic Assessment and plan: Abdominal CT without acute processes. (13) Diabetes mellitus type 2 in obese Current Visit: Yes Status: Chronic Assessment and plan: Controlled with an A1c of 7.7%. Continue sliding scale while admitted - Subjective Interval history: . He denies any new pain. He denies shortness of breath above his norm. He continues to endorse his cough and states it has not been productive. He also endorses generalized abdominal pain which he attributes to diarrhea. He states he has had issues with belly pain and diarrhea since last week when he had an EGD and a colonoscopy. - Constitutional Vitals: Temp Pulse Resp BP Pulse Ox 97.9 F 68 17 165/96 93 07/24/16 11:33 07/24/16 11:33 07/24/16 11:33 07/24/16 11:33 07/24/16 11:33 General appearance: Present: A&O X 3, pleasant, no acute distress, answers questions appropriately - Head Head exam: Present: atraumatic, normocephalic - Eye Eye exam: Present: PERRL, conjuntiva pink, sclera anicteric Pupils: Present: PERRL - Neck Neck exam general surgery: Present: supple, trachea midline. Absent: lymphadenopathy - Respiratory Respiratory exam: Present: decreased breath sounds, rhonchi, wheezes. Absent: accessory muscle use, rales, respiratory distress - Cardiovascular Cardiovascular exam: Present: RRR, +S1, +S2. Absent: diastolic murmur, gallop, rubs, systolic murmur - GI/Abdominal GI/Abdominal exam: Present: normal bowel sounds, soft, tenderness (lower abd), no peritoneal signs. Absent: distended - Extremities Exam Extremities exam: Present: warm, radial pulses palpable and symetrical. Absent : calf tenderness, cyanotic, pedal edema - Neurological Exam Neurological exam: Present: alert, CN II-XII intact, oriented X3, no focal deficits, strengths equal and symetr throughout. Absent: pronater drift, facial droop, speech deficit - Skin Skin exam: Present: dry, intact, pallor, warm Internal Medicine: Result - Labs CBC & Chem 7: 07/24/16 04:20 07/24/16 04:20 Labs: Short CBC 07/24/16 Range/Units 04:20 WBC 5.3 (4.3-11.1) K/mcL Hgb 12.0 L (12.9-16.9) g/dL Hct 35.7 L (37.5-50.1) % Plt Count 173 (140-400) K/mcL Neutrophils # 2.9 (1.6-8.9) K/mcL BMP 07/24/16 04:20 Sodium 136 Potassium 3.8 Chloride 104 Carbon Dioxide 22 BUN 17 Creatinine 0.94 Glucose 134 H Calcium 8.7 - Impressions Impressions Abdomen/Pelvis CT 07/23/16 15:30 IMPRESSION: 1. No acute intra-abdominal or intrapelvic process. 2. No acute bowel inflammation or obstruction. 3. No urinary stones or hydronephrosis. 4. Hepatic steatosis. D/ / 07/23/2016 16:35:11 Wesley Copeland MD / Karli Rodriguez Interpreting Provider: Wesley Copeland MD Chest CT 07/23/16 15:30 IMPRESSION: 1. Multiple scattered nodular ground-glass opacities within the bilateral upper lobes are most likely infectious or inflammatory in etiology, and most likely represent an acute multifocal pneumonia. However, suggest appropriate clinical treatment, and short-term chest CT follow-up in 6-8 weeks to ensure resolution of these ground-glass nodular opacities. 2. Additional scattered subcentimeter bibasilar pulmonary nodules most likely reflect benign granulomata. However, these will require long-term chest CT follow-up to ensure stability, as suggested below. 3. Mild mediastinal lymphadenopathy is likely benign and reactive in etiology. However, this should also be followed to ensure stability. RECOMMENDATIONS: Fleischner Society guidelines for follow-up and management of incidentally detected pulmonary nodules: Multiple Solid Nodules: Nodule size equals 6-8 mm In a low-risk patient, CT at 3-6 months, then consider CT at 18-24 months. In a high-risk patient, CT at 3-6 months, then CT at 18-24 months. - Low risk patients include individuals with minimal or absent history of smoking and other known risk factors. - High risk patients include individuals with a history or smoking or known risk factors. Radiology 2017 http://pubs.rsna.org/doi/full/10.1148/radiol.8626226772 D/ / 07/23/2016 16:21:47 Wesley Copeland MD / Karli Rodriguez Interpreting Provider: Wesley Copeland MD Consult Discharge Plan - Plan Referrals: Ascencion De Luna DO [Primary Care Provider] -
[2016-07-24] MEDS ORDERED: Naloxone 0.4 MG/ML INJ IVP PRN (13:22)
[2016-07-24] MEDS ORDERED: Ibuprofen 400 MG TABLET PO PRN (13:22)
[2016-07-24] MEDS ORDERED: Ibuprofen 600 MG TABLET PO PRN (13:44)
[2016-07-24] MEDS: Azithromycin 500 MG in D5% in Water 250 ML IVPB SCH (21:10)
[2016-07-24] MEDS: Insulin DETEMIR 100 UNIT/ML X5UNITS SQ SCH (21:12)
[2016-07-25 06:01] LABS: Basophils % 0.4 %; Eosinophils # 0.2 K/mcL (0.0-0.6); Eosinophils % 3.3 %; Hematocrit 37.9 % (37.5-50.1); Hemoglobin 12.3 g/dL (12.9-16.9); Immature Granulocytes % 1.3 % (0-4); Lymphocytes # 1.5 K/mcL (0.6-4.6); Lymphocytes % 33.1 %; Mean Corpuscular HGB Conc 32.5 g/dL (31.6-35.5); Mean Corpuscular Hemoglobin 29.2 pg (28.0-33.3); Mean Platelet Volume 11.7 fL (9.4-12.4); Monocytes # 0.5 K/mcL (0.0-1.3); Neutrophils # 2.4 K/mcL (1.6-8.9); Platelet Count 179 K/mcL (140-400); Red Blood Count 4.21 M/mcL (4.19-5.50); Red Cell Distribution Width 13.6 % (11.5-14.5); Segmented Neutrophils % 51.9 %
[2016-07-25 06:25] LABS: Alanine Aminotransferase 118 Units/L (0-55); Albumin 3.2 g/dL (3.5-5.0); Albumin/Globulin Ratio 0.8 (1.1-2.2); Alkaline Phosphatase 115 Units/L (38-126); Aspartate Amino Transferase 81 Units/L (5-34); BUN/Creatinine Ratio 15 (6-26); Bilirubin,Direct 0.2 mg/dL (0.0-0.5); Bilirubin,Total 0.2 mg/dL (0.2-1.2); Blood Urea Nitrogen 13 mg/dL (8-26); Calcium 9.4 mg/dL (8.6-10.8); Carbon Dioxide 27 mEq/L (19-29); Chloride 106 mEq/L (98-109); Globulin 4.2 g/dL (2.4-3.5); Glucose 151 mg/dL (70-99); Lipase 38 Units/L (8-78); Osmolality,Calculated 293 (280-300); Potassium 4.7 mEq/L (3.5-4.5); Sodium 140 mEq/L (136-145); Total Protein 7.4 g/dL (6.0-8.3); eGFR For African Americans > 60 (> 60); eGFR For Non-African Americans > 60 (> 60)
[2016-07-25 06:51] LABS: Large Platelets Present (Not Present); Platelet Estimate Normal (Normal); Reactive Lymphocytes Present (Not Present)
[2016-07-25] MEDS: Insulin LISPRO 300 UNITS/3 ML VIAL SQ SCH (07:15)
[2016-07-25] MEDS: Loratadine 10 MG TABLET PO SCH (08:51)
[2016-07-25] MEDS: Sucralfate 1 GM TABLET PO SCH (08:52)
[2016-07-25] MEDS: Lisinopril 20 MG TABLET PO SCH (08:52)
[2016-07-25] MEDS: Famotidine 20 MG TABLET PO SCH (08:52)
[2016-07-25] MEDS: Aspirin 81 MG TAB.CHEW PO SCH (08:52)
[2016-07-25] MEDS: Fluticasone Propionate Nasal 50 MCG/SPRAY BOTTLE NS SCH (08:53)
[2016-07-25] MEDS: *HR* HYDROcodone/Acet 5/325 mg TABLET PO PRN (08:58)
[2016-07-25] MEDS ORDERED: hydroCHLOROthiazide 25 MG TABLET PO SCH (09:00)
--- NOTE | 2016-07-25 10:26 | Discharge Summary ---
Date of Encounter: 07/25/16 Time of Encounter: 09:30 - Discharge Diagnosis (1) Multifocal pneumonia Priority: Primary Status: Acute Comments: Chest CT consistent with multifocal pneumonia unknown etiology. Patient is tolerated room air while admitted. Lungs CTAB on day of discharge. Will send home on levoflox; treated with Azithromycin and Ceftriaxone while admitted. (2) JERRY (acute kidney injury) Priority: Primary Status: Resolved (3) Hypertension Priority: Secondary Status: Chronic Comments: Patient was hypotensive upon arrival so all for his antihypertensive medications were held. He became hypertensive and 2 of his medications were resumed. He was again hypertensive, so his 3rd medication was resumed. All but his propanolol were resumed. At time of discharge, BP improved and stable- recommend daily blood pressure checks at home and following up closely outpatient. Qualifiers: Hypertension type: essential hypertension Qualified Code(s): I10 - Essential (primary) hypertension (4) Hypotension Priority: Primary Status: Resolved Qualifiers: Hypotension type: unspecified hypotension type Qualified Code(s): I95.9 - Hypotension, unspecified (5) Dizziness Priority: Primary Status: Resolved (6) Abdominal pain Priority: Primary Status: Acute Comments: Patient was able to tolerate a regular diet while admitted. Abdominal CT unremarkable. LFTs mildly elevated and decreased prior to discharge. Follow- up outpatient. Qualifiers: Abdominal location: epigastric Qualified Code(s): R10.13 - Epigastric pain (7) Lightheadedness Priority: Primary Status: Resolved (8) Abnormal urinalysis Priority: Primary Status: Ruled-out Comments: Ruled out. Urine culture negative. (9) CAD (coronary artery disease) Priority: Secondary Status: Chronic Comments: Patient denied chest pain. Qualifiers: Coronary Disease-Associated Artery/Lesion type: [place] artery [place] vs. transplanted heart: [place] heart Associated angina: without angina Qualified Code(s): I25.10 - Atherosclerotic heart disease of [place] coronary artery without angina pectoris (10) Anemia Priority: Secondary Status: Chronic Comments: Mild. Acute on chronic. No signs of active bleeding. Qualifiers: Anemia type: unspecified type Qualified Code(s): D64.9 - Anemia, unspecified (11) Transaminitis Priority: Secondary Status: Chronic Comments: Acute on chronic since September 2015. Patient with known history of alcohol usage per day. No signs of withdrawal while admitted. LFT's trended down prior to discharge. (12) Diverticulosis Priority: Secondary Status: Chronic Qualifiers: Diverticulosis site: unspecified location Diverticulosis bleeding: diverticulosis without bleeding Qualified Code(s): K57.90 - Diverticulosis of intestine, part unspecified, without perforation or abscess without bleeding (13) Diabetes mellitus type 2 in obese Priority: Secondary Status: Chronic Comments: Controlled with an A1c of 7.7%. Follow-up outpatient - Discharge Medications Prescriptions: Levofloxacin 750 mg PO DAILY #5 tablet Home Medications: Albuterol Sulfate [Proair Hfa] 2 puff IH Q4H PRN 06/28/15 [History] Aspirin 81 mg PO DAILY tab.chew 06/28/15 [Rx] Fluticasone Propionate Nasal [Flonase] 100 mcg NS DAILY 06/28/15 [History] Lovastatin 20 mg PO DAILY #30 tablet 06/28/15 [Rx] Metoprolol [Lopressor] 25 mg PO BID #60 tablet 06/28/15 [Rx] Montelukast [Singulair] 10 mg PO DAILY 06/28/15 [History] Omeprazole [PriLOSEC] 40 mg PO DAILY 06/28/15 [History] Ranitidine HCl [Zantac] 300 mg PO BID 06/28/15 [History] Tizanidine HCl [Zanaflex] 4 mg PO BID PRN 06/28/15 [History] Benzonatate [Tessalon] 200 mg PO TID PRN #20 capsule 07/21/16 [Rx] Tramadol HCl [Ultram] 50 mg PO BID PRN #4 tab 07/21/16 [Rx] Buspirone HCl [Buspar] 10 mg PO BID 07/23/16 [History] Cetirizine HCl [All Day Allergy] 10 mg PO DAILY 07/23/16 [History] Ferrous Sulfate [Iron] 325 mg PO DAILY 07/23/16 [History] Insulin Glargine,Hum.rec.anlog [Lantus Solostar] 70 unit SQ HS 07/23/16 [History ] Lisinopril/Hydrochlorothiazide [Zestoretic 20-12.5 mg Tablet] 1 each PO DAILY [History] Metformin HCl [Metformin HCl ER] 2,000 mg PO DAILY 07/23/16 [History] Pravastatin Sodium [Pravachol] 40 mg PO DAILY 07/23/16 [History] Sertraline [Zoloft] 50 mg PO DAILY 07/23/16 [History] Sucralfate [Carafate] 1 gm PO BID 07/23/16 [History] Levofloxacin 750 mg PO DAILY #5 tablet 07/25/16 [Rx] Allergies/Adverse Reactions: Allergies No Known Allergies Allergy (Verified 07/23/16 07:43) Procedures/tests Complete & Pending: Procedures Performed prior 72 hours Category Date Time Status CT abd pelvis wo iv oral only [CT] Stat Cat Scan 07/23/16 15:[address] chest w/o contrast [CT chest wo con] [CT] Stat Cat Scan 07/23/16 15:30 Completed EV echocardiogram Routine Y 07/23/16 13:19 Completed Date of admission: 07/23/16 12:07 Primary care physician: Ascencion De Luna DO Consults: 07/23/16 13:07 Consult to Occupational Therapy [CONS] Routine Comment: Evaluate, develop and implement POC Consult to Physical Therapy [CONS] Routine Comment: Evaluate, develop and implement POC Discharging clinician: Zeinab Gan Anticipated date of discharge: 07/25/16 - Patient Status Disposition: Home, Self-Care Condition: Fair Functional capacity at discharge: independent ambulation Overall status at discharge: patient is progressing back to baseline - Discharge Instructions Follow Up With: Ascencion De Luna DO [Primary Care Provider] - 08/01/16 3:00 pm Additional Instructions: Follow-up with primary care provider within one to 2 weeks. Check blood pressure daily and keep a log. - Diet and Activity Activity: increase activity as tolerated Diet: low fat, low cholesterol, low salt diet Hospital course: Mr. Aguilar is a 50 year old male with past medical history of diabetes, hypertension, hyperlipidemia, heavy alcohol use. Patient presented to the emergency department chief complaint of lightheadedness. Patient stating he was at work when he noticed he was feeling lightheaded and he felt as if he is going to pass out but he did not. He also endorsed generalized weakness and lethargy. Patient was seen at an outlying emergency department on the day prior to presentation for chief complaint of left lower quadrant abdominal pain and was treated with ciprofloxacin and Flagyl empirically for suspected diverticulitis then discharged. Patient denied any hematemesis or hematochezia. Upon arrival to the emergency department, his blood pressure was 90/50. Patient stating his blood pressure typically runs very high. Patient was given a fluid bolus and was admitted to the hospitalist service for further evaluation and management. Chest x-ray negative. Abdominal and pelvic CT negative for acute processes. Mild transaminitis noted that trended down during this admission. Echocardiogram unremarkable with ejection fraction of 60 %. Patient was able to tolerate a regular diet over the course of his 2 night admission. Patient complained of shortness of breath so a chest CT was obtained which is consistent with multifocal pneumonia of unknown etiology. He remained on room air during this admission. During this admission, he was treated with azithromycin and ceftriaxone and was sent home on Levofloxacin for CAP of unknown etiology. Regarding his hypertension, at home, patient is on metoprolol 25 mg twice a day, lisinopril 20 mg daily, HCTZ 12.5 mg daily, and propranolol 40 mg twice a day. His acute kidney injury present on admission resolved and his metoprolol and lisinopril were resumed. He then remained hypertensive so his HCTZ was added back on. On day of discharge, his blood pressure had improved and his propanolol was discontinued. He was instructed to check his blood pressure daily and keep a log for his primary care provider. His dizziness and lightheadedness had resolved. He did have an abnormal urinalysis and on day of discharge, his urine culture was negative. He was discharged home in stable condition with close outpatient follow-up recommended. ITS Impressions Chest X-Ray 07/23/16 07:59 IMPRESSION: No acute pulmonary finding. Stable mild cardiomegaly. D/ / Vijay Simpson MD / Vijay Simpson MD Interpreting Provider: Vijay Simpson MD Abdomen/Pelvis CT 07/23/16 15:30 IMPRESSION: 1. No acute intra-abdominal or intrapelvic process. 2. No acute bowel inflammation or obstruction. 3. No urinary stones or hydronephrosis. 4. Hepatic steatosis. D/ / 07/23/2016 16:35:11 Wesley Copeland MD / Karli Rodriguez Interpreting Provider: Wesley Copeland MD Chest CT 07/23/16 15:30 IMPRESSION: 1. Multiple scattered nodular ground-glass opacities within the bilateral upper lobes are most likely infectious or inflammatory in etiology, and most likely represent an acute multifocal pneumonia. However, suggest appropriate clinical treatment, and short-term chest CT follow-up in 6-8 weeks to ensure resolution of these ground-glass nodular opacities. 2. Additional scattered subcentimeter bibasilar pulmonary nodules most likely reflect benign granulomata. However, these will require long-term chest CT follow-up to ensure stability, as suggested below. 3. Mild mediastinal lymphadenopathy is likely benign and reactive in etiology. However, this should also be followed to ensure stability. RECOMMENDATIONS: Fleischner Society guidelines for follow-up and management of incidentally detected pulmonary nodules: Multiple Solid Nodules: Nodule size equals 6-8 mm In a low-risk patient, CT at 3-6 months, then consider CT at 18-24 months. In a high-risk patient, CT at 3-6 months, then CT at 18-24 months. - Low risk patients include individuals with minimal or absent history of smoking and other known risk factors. - High risk patients include individuals with a history or smoking or known risk factors. Radiology 2017 http://pubs.rsna.org/doi/full/10.1148/radiol.[id number] D/ /23/2016 16:21:47 Wesley Copeland MD / Karli Rodriguez Interpreting Provider: Wesley Copeland MD Echocardiogram impressions: Normal LV systolic function, LVEF 60%. Normal left ventricular diastolic function. Normal right ventricular size and function. No evidence of pulmonary hypertension. No significant valvular dysfunction. No evidence of valvular vegetations. - Time Spent with Patient Total time spent providing and/or coordinating discharge services: - Constitutional Vitals: Temp Pulse Resp BP Pulse Ox 97.7 F 64 16 170/95 95 07/25/16 07:07 07/25/16 07:07 07/25/16 07:07 07/25/16 07:07 07/25/16 07:07 General appearance: Present: A&O X 3, pleasant, no acute distress, answers questions appropriately - Head Head exam: Present: atraumatic, normocephalic - Eye Eye exam: Present: PERRL, conjuntiva pink, sclera anicteric Pupils: Present: PERRL - Neck Neck exam general surgery: Present: supple, trachea midline. Absent: lymphadenopathy - Respiratory Respiratory exam: Present: CTAB. Absent: accessory muscle use, rales, respiratory distress, rhonchi, wheezes - Cardiovascular Cardiovascular exam: Present: RRR, +S1, +S2. Absent: diastolic murmur, gallop, rubs, systolic murmur - GI/Abdominal GI/Abdominal exam: Present: distended, normal bowel sounds, soft, tenderness ( RUQ/epig- chornic), no peritoneal signs - Extremities Exam Extremities exam: Present: warm, radial pulses palpable and symetrical. Absent : calf tenderness, cyanotic, pedal edema - Neurological Exam Neurological exam: Present: alert, CN II-XII intact, normal gait, oriented X3, no focal deficits, strengths equal and symetr throughout. Absent: pronater drift, facial droop, speech deficit - Skin Skin exam: Present: dry, intact, normal color, warm
[2016-07-25 10:58] VITALS: BP 159/95
[2016-07-26 07:49] LABS: ANA IgG by ELISA NONE DETECTED (None Detected)
== END 2016-07-25 12:19 | disposition home or self-care (01) ==
LOC: 3BNU 07:39 → EMEROO 07:39 → SUATTDRO 12:07 → 3BNU 13:06
PROVIDERS: ADMIT Hospitalist; ATTEND Nurse Practitioner Family

== ENCOUNTER 2018-09-20 21:18 | Observation (INO) ==
[2018-09-20] MEDS ORDERED: Aspirin 81 MG TAB.CHEW PO ONE (21:19)
[2018-09-20] MEDS ORDERED: Nitroglycerin 0.4 MG TAB.SUBL SL PRN (21:19)
[2018-09-20 21:41] LABS: Basophils # 0.1 K/mcL (0.0-0.2); Basophils % 0.9 %; Eosinophils # 0.1 K/mcL (0.0-0.6); Eosinophils % 2.1 %; Hematocrit 37.4 % (37.5-50.1); Hemoglobin 12.9 g/dL (12.9-16.9); Immature Granulocytes % 0.9 % (0-4); Lymphocytes # 1.7 K/mcL (0.6-4.6); Lymphocytes % 29.5 %; Mean Corpuscular HGB Conc 34.5 g/dL (31.6-35.5); Mean Corpuscular Hemoglobin 30.6 pg (28.0-33.3); Mean Corpuscular Volume 88.6 fL (83.0-100.0); Mean Platelet Volume 11.3 fL (9.4-12.4); Monocytes # 0.4 K/mcL (0.0-1.3); Monocytes % 6.7 %; Neutrophils # 3.4 K/mcL (1.6-8.9); Platelet Count 169 K/mcL (140-400); Red Blood Count 4.22 M/mcL (4.19-5.50); Red Cell Distribution Width 12.7 % (11.5-14.5); Segmented Neutrophils % 59.9 %; White Blood Count 5.7 K/mcL (4.3-11.1)
--- NOTE | 2018-09-20 21:55 | Emergency Department Note ---
Disposition Clinical Impression: Exertional chest pain Disposition: Admitted As Inpatient Condition: Fair Time of Disposition: 23:30 General Adult HPI - General Chief complaint: ED Chest Pain Stated complaint: Chest pain Time Seen by Provider: 09/20/18 21:19 Source: patient, EMS Mode of arrival: EMS Limitations: no limitations Nursing Notes Reviewed: Yes Vital Signs Reviewed: Yes - History of Present Illness HPI Narrative: Patient is a 52-year-old male with past medical history of cardiac catheterization presents to the ED for evaluation of 6 months of intermittent chest pain that is worsening this evening to the point where he is unable to perform any physical activity without experiencing exertional chest pain or dyspnea. States that recently he is unable to walk across a room without becoming dyspneic with chest pain. When he has chest pain he describes as a 5/10 pressure with radiation into his limbs and his neck and back. It is associated with diaphoresis and nausea. At this time he has no chest pain and is asymptomatic. - Related Data Previous Rx's Medication Instructions Recorded Albuterol Sulfate [Proair Hfa] 2 puff IH Q4H PRN #1 hfa.aer.ad 03/15/17 Aspirin 81 mg PO DAILY #30 tab.chew 03/15/17 Atorvastatin [Lipitor] 80 mg PO HS #60 tablet 03/15/17 Escitalopram [Lexapro] 20 mg PO DAILY #60 tablet 03/15/17 Fluticasone Propionate Nasal 100 mcg NS DAILY #1 bottle 03/15/17 [Flonase] Insulin Glargine,Hum.rec.anlog 80 unit SQ HS #1 insuln.pen 03/15/17 [Basaglar Kwikpen U-100] Lisinopril/Hydrochlorothiazide 1 each PO DAILY #30 tablet 03/15/17 [Zestoretic 20-12.5 mg Tablet] Metformin HCl [Metformin ER 2,000 mg PO DAILY #120 [id number] 03/15/17 Gastric] Montelukast [Singulair] 10 mg PO DAILY #30 tablet 03/15/17 Pantoprazole Sodium 40 mg PO DAILY #30 tablet. 03/15/17 Propranolol HCl 40 mg PO BID #60 tablet 03/15/17 Ranitidine HCl [Zantac] 300 mg PO BID #60 tablet 03/15/17 Sucralfate [Carafate] 1 gm PO BID #60 tablet 03/15/17 hydrOXYzine pamoate [HydrOXYzine 50 mg PO TID PRN #90 capsule 03/15/17 Pamoate] traZODone [TraZODone] 50 mg PO HS PRN #30 tablet 03/15/17 Allergies Allergy/AdvReac Type Severity Reaction Status Date / Time No Known Allergies Allergy Verified 03/12/17 10:39 All systems ED: reviewed and negative except as stated. Review of Systems: As Per HPI Constitutional: Denies: fever Cardiovascular: Reports: chest pain, dyspnea on exertion. Denies: palpitations, edema, syncope, paroxysmal nocturnal dyspnea Respiratory: Reports: dyspnea. Denies: cough, wheezes, hemoptysis, sputum production Gastrointestinal: Reports: nausea. Denies: abdominal pain, vomiting, diarrhea Musculoskeletal: Denies: back pain, neck pain Integumentary: Denies: rash Past Medical History - Past Medical History Attestation: Yes The following information was validated with the patient. Medical history: Reports: arthritis, asthma, coronary artery disease, diabetes, GERD, hyperlipidemia, hypertension Surgical history: Reports: knee replacement, other Psychiatric history: Reports: anxiety, depression, prior suicide attempt - Social History Smoking Status: Never smoker Smokeless Tobacco Status: Yes Alcohol use: Reports: heavy, recent Drug use: Reports: none Physical Exam CONSTITUTIONAL: Well-appearing; well-nourished; A&O X 3, in no apparent distress. HEAD: Normocephalic; atraumatic EYES: PERRL, no scleral icterus NOSE: The nose is normal in appearance without rhinorrhea NECK: No JVD or distended neck veins RESP: Normal chest excursion with respiration; breath sounds clear and equal bilaterally; no wheezes, rhonchi, or rales CARD: Regular rhythm, without murmurs, rub or gallop ABD: Non-distended; non-tender, soft, without rigidity, rebound or guarding,no pulsatile mass CHEST: No pain with palpation SKIN: Normal for age and race; warm and dry without diaphoresis ; no apparent lesions EXTREMITIES: Pulses are 2 plus and equal times 4 extremities, no peripheral edema or calf muscle pain Course Course Narrative: Cardiac catheterization in 2013 that showed mild coronary artery disease. The patient had 20% blockage of his LAD as well as 30% stenosis of the circumflex. Patient's HEART score is 6 points. He remains asymptomatic while in the ED. His troponin was negative. The patient had an elevated d-dimer therefore he underwent a CT of the chest. Showed no pneumonia, pulmonary embolus or edema. He did have a metallic density seen at the GE junction. The patient did admit to having a recent chip placed for evaluation of his hiatal hernia and acid reflux. - Reevaluation(s) Reevaluation #1: Patient CT scan was significant for appearance of a metallic foreign body which is was likely consistent with a chip that he had placed [address] Strauss's office for evaluation of acid in his stomach. His workup other than his abnormal EKG was unremarkable and he experienced no further episodes of chest pain while in the ED. I discussed patient's case with the hospitalist on- call Dr. Gerardo and he agreed to accept the patient. Vital Signs Temperature 98.9 F 09/20/18 21:45 Pulse Rate 110 09/20/18 21:45 Respiratory Rate 18 09/20/18 21:45 Blood Pressure 100/77 09/20/18 21:45 O2 Sat by Pulse Oximetry 96 09/20/18 21:45 Temperature 98.1 F 09/21/18 00:24 Pulse Rate 97 09/21/18 00:24 Respiratory Rate 16 09/21/18 00:24 Blood Pressure 147/88 09/21/18 00:24 O2 Sat by Pulse Oximetry 93 09/21/18 00:24 Oxygen Delivery Oxygen Delivery Room Air Medical Decision Making - Medical Records Medical records reviewed: Yes I reviewed the patient's medical records. - Lab Data Lab results reviewed: Yes I reviewed the patient's lab results. Result diagrams: 09/20/18 21:30 09/20/18 21:30 Lab Results 09/20/18 09/20/18 09/20/18 Range/Units 21:30 21:30 21:30 WBC 5.7 (4.3-11.1) K/mcL RBC 4.22 (4.19-5.50) M/mcL Hgb 12.9 (12.9-16.9) g/dL Hct 37.4 L (37.5-50.1) % MCV 88.6 (83.0-100.0) fL MCH 30.6 (28.0-33.3) pg MCHC 34.5 (31.6-35.5) g/dL RDW 12.7 (11.5-14.5) % Plt Count 169 (140-400) K/mcL MPV 11.3 (9.4-12.4) fL Immature Gran % 0.9 (0-4) % Seg Neutrophils % 59.9 % Lymphocytes % 29.5 % Monocytes % 6.7 % Eosinophils % 2.1 % Basophils % 0.9 % Neutrophils # 3.4 (1.6-8.9) K/mcL Lymphocytes # 1.7 (0.6-4.6) K/mcL Monocytes # 0.4 (0.0-1.3) K/mcL Eosinophils # 0.1 (0.0-0.6) K/mcL Basophils # 0.1 (0.0-0.2) K/mcL D-Dimer 802 H (0-500) ng/mLFEU Sodium 130 L (136-145) mEq/L Potassium 3.7 (3.5-5.1) mEq/L Chloride 92 L (98-107) mEq/L Carbon Dioxide 17 L (23-29) mEq/L BUN 9 (6-20) mg/dL Creatinine 0.85 (0.70-1.30) mg/dL Est GFR ( Amer) > 60 (> 60) Est GFR (Non-Af Amer) > 60 (> 60) BUN/Creatinine Ratio 11 (6-26) Glucose 286 H (70-105) mg/dL Calculated Osmolality 279 L (280-300) Calcium 9.3 (8.6-10.3) mg/dL Troponin I < 0.03 (< 0.04) ng/mL - Radiology Data Radiology results reviewed: Yes I reviewed the patient's radiology results. Chest X-Ray 09/20/18 21:19 IMPRESSION: No radiographic evidence of acute cardiopulmonary disease. D/ / Quinn Allen / Quinn Allen Interpreting Provider: Quinn Allen Chest CTA 09/20/18 22:00 IMPRESSION: No pulmonary embolus. No pneumonia or edema. There is decreased nodularity compared to prior study from 2017.. A more focal punctate nodule in the left lower lobe measures 6-7 mm, similar to prior Metallic density is seen at the GE junction. Correlate with any recent foreign body ingestion or recent procedure. D/ / Martínez Pryor MD / Martínez Pryor MD Interpreting Provider: Martínez Pryor MD - EKG Data EKG #1 EKG attestation: Yes I reviewed and interpreted this EKG. EKG results narrative: EKG done at 21:29 shows sinus tachycardia rate 1 or 9 bpm. Normal axis. Intervals within normal limits, except a prolonged QT at 531. Patient has abnormal ST segments in the inferior leads concerning for minimal depression or inversion with nonspecific ST changes in lead V2. Changed since 07/23/2016.
[2018-09-20] MEDS ORDERED: Isovue-370 500 ML BOTTLE IVP ONE (22:00)
--- NOTE | 2018-09-20 22:04 | Emergency Department Note ---
Disposition Clinical Impression: Exertional chest pain Disposition: Admitted As Inpatient Condition: Fair Time of Disposition: 00:00 General Adult HPI - General Chief complaint: ED Chest Pain Stated complaint: Chest pain Time Seen by Provider: 09/20/18 21:19 - Related Data Previous Rx's Medication Instructions Recorded Albuterol Sulfate [Proair Hfa] 2 puff IH Q4H PRN #1 hfa.aer.ad 03/15/17 Aspirin 81 mg PO DAILY #30 tab.chew 03/15/17 Atorvastatin [Lipitor] 80 mg PO HS #60 tablet 03/15/17 Escitalopram [Lexapro] 20 mg PO DAILY #60 tablet 03/15/17 Fluticasone Propionate Nasal 100 mcg NS DAILY #1 bottle 03/15/17 [Flonase] Insulin Glargine,Hum.rec.anlog 80 unit SQ HS #1 insuln.pen 03/15/17 [Basaglar Kwikpen U-100] Lisinopril/Hydrochlorothiazide 1 each PO DAILY #30 tablet 03/15/17 [Zestoretic 20-12.5 mg Tablet] Metformin HCl [Metformin ER 2,000 mg PO DAILY #120 [id number] 03/15/17 Gastric] Montelukast [Singulair] 10 mg PO DAILY #30 tablet 03/15/17 Pantoprazole Sodium 40 mg PO DAILY #30 tablet.dr 03/15/17 Propranolol HCl 40 mg PO BID #60 tablet 03/15/17 Ranitidine HCl [Zantac] 300 mg PO BID #60 tablet 03/15/17 Sucralfate [Carafate] 1 gm PO BID #60 tablet 03/15/17 hydrOXYzine pamoate [HydrOXYzine 50 mg PO TID PRN #90 capsule 03/15/17 Pamoate] traZODone [TraZODone] 50 mg PO HS PRN #30 tablet 03/15/17 Allergies Allergy/AdvReac Type Severity Reaction Status Date / Time No Known Allergies Allergy Verified 03/12/17 10:39 Past Medical History - Past Medical History Medical history: Reports: arthritis, asthma, coronary artery disease, diabetes, GERD, hyperlipidemia, hypertension Surgical history: Reports: knee replacement, other Psychiatric history: Reports: anxiety, depression, prior suicide attempt - Social History Smoking Status: Never smoker Smokeless Tobacco Status: Yes Alcohol use: Reports: heavy, recent Drug use: Reports: none Course Vital Signs Temperature 98.9 F 09/20/18 21:45 Pulse Rate 110 09/20/18 21:45 Respiratory Rate 18 09/20/18 21:45 Blood Pressure 100/77 09/20/18 21:45 O2 Sat by Pulse Oximetry 96 09/20/18 21:45 Temperature 98.9 F 09/20/18 21:45 Pulse Rate 105 09/20/18 23:00 Respiratory Rate 18 09/20/18 23:00 Blood Pressure 123/68 09/20/18 23:00 O2 Sat by Pulse Oximetry 96 09/20/18 23:00 Oxygen Delivery Oxygen Delivery Room Air Medical Decision Making - Lab Data Result diagrams: 09/20/18 21:30 09/20/18 21:30 Lab Results 09/20/18 09/20/18 09/20/18 Range/Units 21:30 21:30 21:30 WBC 5.7 (4.3-11.1) K/mcL RBC 4.22 (4.19-5.50) M/mcL Hgb 12.9 (12.9-16.9) g/dL Hct 37.4 L (37.5-50.1) % MCV 88.6 (83.0-100.0) fL MCH 30.6 (28.0-33.3) pg MCHC 34.5 (31.6-35.5) g/dL RDW 12.7 (11.5-14.5) % Plt Count 169 (140-400) K/mcL MPV 11.3 (9.4-12.4) fL Immature Gran % 0.9 (0-4) % Seg Neutrophils % 59.9 % Lymphocytes % 29.5 % Monocytes % 6.7 % Eosinophils % 2.1 % Basophils % 0.9 % Neutrophils # 3.4 (1.6-8.9) K/mcL Lymphocytes # 1.7 (0.6-4.6) K/mcL Monocytes # 0.4 (0.0-1.3) K/mcL Eosinophils # 0.1 (0.0-0.6) K/mcL Basophils # 0.1 (0.0-0.2) K/mcL D-Dimer 802 H (0-500) ng/mLFEU Sodium 130 L (136-145) mEq/L Potassium 3.7 (3.5-5.1) mEq/L Chloride 92 L (98-107) mEq/L Carbon Dioxide 17 L (23-29) mEq/L BUN 9 (6-20) mg/dL Creatinine 0.85 (0.70-1.30) mg/dL Est GFR ( Amer) > 60 (> 60) Est GFR (Non-Af Amer) > 60 (> 60) BUN/Creatinine Ratio 11 (6-26) Glucose 286 H (70-105) mg/dL Calculated Osmolality 279 L (280-300) Calcium 9.3 (8.6-10.3) mg/dL Troponin I < 0.03 (< 0.04) ng/mL Attestation Statement - Attestation Attestation: I examined this patient and my medical decision-making was reviewed with the Resident Physician. I agree with the documented findings, disposition and treatment plan as described except to the extent set forth below. Patient presents to the ED with chief clinic chest pain he describes it as pressure going into the neck and left arm. He has had intermittent episodes for over a month. Sometimes exertional. Sometimes at rest. He has history of a heart catheterization 3 years ago that showed a 35% blockage at that time. Patient has associated nausea, diaphoresis, and dyspnea with the episodes. On exam he is, cooperative in no acute distress. He rates his pain a 0-10 at this time. Heart regular rhythm lungs are clear. Plan. Cardiac workup. EKG reviewed with the resident. He does have some inferior ST depressions. Biphasic T-wave in V2. Patient will be admitted to the hospitalist service pending his workup. EKG reviewed with the resident. Patient does have some ST segment changes but does not meet STEMI criteria. Workup unremarkable. Patient admitted to medicine. CTA negative for PE. Chest X-Ray 09/20/18 21:19 IMPRESSION: No radiographic evidence of acute cardiopulmonary disease. D/ / Quinn Allen / Quinn Allen Interpreting Provider: Quinn Allen Chest CTA 09/20/18 22:00 IMPRESSION: No pulmonary embolus. No pneumonia or edema. There is decreased nodularity compared to prior study from 2017.. A more focal punctate nodule in the left lower lobe measures 6-7 mm, similar to prior Metallic density is seen at the GE junction. Correlate with any recent foreign body ingestion or recent procedure. D/ / Martínez Pryor MD / Martínez Pryor MD Interpreting Provider: Martínez Pryor MD
[2018-09-20 22:07] LABS: BUN/Creatinine Ratio 11 (6-26); Blood Urea Nitrogen 9 mg/dL (6-20); Calcium 9.3 mg/dL (8.6-10.3); Carbon Dioxide 17 mEq/L (23-29); Chloride 92 mEq/L (98-107); Glucose 286 mg/dL (70-105); Osmolality,Calculated 279 (280-300); Potassium 3.7 mEq/L (3.5-5.1); Sodium 130 mEq/L (136-145); Troponin I < 0.03 ng/mL (< 0.04); eGFR For African Americans > 60 (> 60); eGFR For Non-African Americans > 60 (> 60)
[2018-09-20] MEDS ORDERED: GI Cocktail 40 ML EACH PO ONE (23:11)
[2018-09-21] MEDS ORDERED: Naloxone 0.4 MG/ML INJ IVP PRN (00:35)
[2018-09-21] MEDS ORDERED: Dextrose Gel 15 GM/37.5 ML TUBE PO PRN ×2 (00:39)
[2018-09-21] MEDS ORDERED: *HR* Dextrose 50 % in Water (Syg) 50 ML SYRINGE IVP PRN (00:39)
[2018-09-21] MEDS ORDERED: D5% in Water 1,000 ML IVC PRN (00:39)
--- NOTE | 2018-09-21 00:55 | Internal Med History&Physical ---
Date of Encounter: 09/20/18 Time of Encounter: 23:52 Internal Medicine - H&P: HPI Chief complaint: Chest pain Admitted From: Emergency Dept Plans for Post Hospital Care: Home History of present illness: Mr. Aguilar is a 52 year old male Patient presented to the emergency department for evaluation of chest pain that has been intermittent for the last several months. He particularly has the pain with exertion, and is associated with diaphoresis as well. If he relaxes the pain improves. He has not tried anything else to help with alleviating the pain his has been trying to convince him to come to the hospital to be checked out but he had not up until this point. He says that he has just been too busy to come in. He has a history of cardiac catheter in the past but no stents were placed. In the emergency room patient's initial vital signs demonstrated a slightly elevated heart rate in the low 100s, otherwise within normal limits CBC: Within normal limits BMP: Sodium of 130 and glucose of 286 otherwise within normal limits. D-dimer elevated at 802 Troponin undetectable Chest x-ray showed no acute cardiopulmonary disease CT angiogram demonstrated no pulmonary embolus, pneumonia, edema there was a finding of a metallic density at the GE junction correlating with recent microchip insertion for evaluation of hiatal hernia and Laws's esophagus by endoscopy team a few days ago. EKG showed sinus tachycardia with a rate of 109. QTC of 531. No ischemic changes The emergency department gave the patient to 24 mg of aspirin, a GI cocktail, nitroglycerin. Patient was chest pain-free upon arrival. He was admitted to the hospital for further management. Upon my evaluation, patient is resting comfortably in the ER bed in no acute distress. He denies chest pain, abdominal pain, nausea, vomiting, diarrhea and constipation. He has significant past family history of heart disease, his father had a heart attack and it quadruple bypass at the age of 45. His brother had a heart attack while he was in his 50s. His mother had history of strokes. He is a full code. Past Med Surg Social Fam HX - Past Medical History Medical history: arthritis, asthma, coronary artery disease, diabetes, GERD, hyperlipidemia, hypertension Additional medical history: barretts disease, anemia, pneumonia, Psychiatric history: anxiety, depression, prior suicide attempt - Past Surgical History Surgical History: knee replacement, other Additional surgical history: cardiac cath, finger surgery, EGD - Social History Smoking Status: Never smoker Smokeless Tobacco Status: Yes Alcohol use: heavy, recent Drug use: none - Family History Father Living Status: Still Living Hx Family Cardiac Disorders: Yes (4way bypass at age 45) Brother Living Status: Still Living Hx Family Cardiac Disorders: Yes (AL/Stents at 48) Mother Living Status: Still Living Hx Family Neurologic Disorders: Yes (CVA x2, multiple TIAs) Internal Medicine - H&P: Meds Albuterol Sulfate [Proair Hfa] 2 puff IH Q4H PRN #1 hfa.aer.ad 03/15/17 [Rx] Aspirin 81 mg PO DAILY #30 tab.chew 03/15/17 [Rx] Atorvastatin [Lipitor] 80 mg PO HS #60 tablet 03/15/17 [Rx] Escitalopram [Lexapro] 20 mg PO DAILY #60 tablet 03/15/17 [Rx] Fluticasone Propionate Nasal [Flonase] 100 mcg NS DAILY #1 bottle 03/15/17 [Rx] Insulin Glargine,Hum.rec.anlog [Basaglar Kwikpen U-100] 80 unit SQ HS #1 insuln.pen 03/15/17 [Rx] Lisinopril/Hydrochlorothiazide [Zestoretic 20-12.5 mg Tablet] 1 each PO DAILY #30 tablet 03/15/17 [Rx] Metformin HCl [Metformin ER Gastric] 2,000 mg PO DAILY #120 [id number] 03/15/17 [Rx] Montelukast [Singulair] 10 mg PO DAILY #30 tablet 03/15/17 [Rx] Pantoprazole Sodium 40 mg PO DAILY #30 tablet.dr 03/15/17 [Rx] Propranolol HCl 40 mg PO BID #60 tablet 03/15/17 [Rx] Ranitidine HCl [Zantac] 300 mg PO BID #60 tablet 03/15/17 [Rx] Sucralfate [Carafate] 1 gm PO BID #60 tablet 03/15/17 [Rx] hydrOXYzine pamoate [HydrOXYzine Pamoate] 50 mg PO TID PRN #90 capsule 03/15/17 [Rx] traZODone [TraZODone] 50 mg PO HS PRN #30 tablet 03/15/17 [Rx] Allergy/AdvReac Type Severity Reaction Status Date / Time No Known Allergies Allergy Verified 03/12/17 10:39 All Systems PM: A 10-system review of systems was performed and is negative for pertinent findings except as documented above in the HPI. - Constitutional Vitals: Temp Pulse Resp BP Pulse Ox 98.1 F 97 16 147/88 93 09/21/18 00:24 09/21/18 00:24 09/21/18 00:24 09/21/18 00:24 09/21/18 00:24 General appearance: Present: cooperative, A&O X 3, pleasant, no acute distress, answers questions appropriately Exam: - - Head Head exam: Present: normal inspection - Eye Eye exam: Present: EOMI, normal appearance - Respiratory Respiratory exam: Present: CTAB. Absent: rales, respiratory distress, rhonchi, wheezes - Cardiovascular Cardiovascular exam: Present: RRR. Absent: diastolic murmur, systolic murmur - GI/Abdominal GI/Abdominal exam: Present: normal bowel sounds, soft. Absent: tenderness - Extremities Exam Extremities exam: Present: calf tenderness, warm, radial pulses palpable and symmetrical. Absent: pedal edema, tenderness - Neurological Exam Neurological exam: Present: no focal deficits, strengths equal and symetr throughout. Absent: motor sensory deficit, facial droop, speech deficit - Skin Skin exam: Present: dry, normal color, warm Internal Med - H&P Results - Labs CBC & Chem 7: 09/20/18 21:30 09/20/18 21:30 Labs: Short CBC 09/20/18 Range/Units 21:30 WBC 5.7 (4.3-11.1) K/mcL Hgb 12.9 (12.9-16.9) g/dL Hct 37.4 L (37.5-50.1) % Plt Count 169 (140-400) K/mcL Neutrophils # 3.4 (1.6-8.9) K/mcL BMP 09/20/18 21:30 Sodium 130 L Potassium 3.7 Chloride 92 L Carbon Dioxide 17 L BUN 9 Creatinine 0.85 Glucose 286 H Calcium 9.3 Cardiac Enzymes 09/20/18 Range/Units 21:30 Troponin I < 0.03 (< 0.04) ng/mL - Impressions ITS Impressions Chest X-Ray 09/20/18 21:19 IMPRESSION: No radiographic evidence of acute cardiopulmonary disease. D/ / Quinn Allen / Quinn Allen Interpreting Provider: Quinn Allen Chest CTA 09/20/18 22:00 IMPRESSION: No pulmonary embolus. No pneumonia or edema. There is decreased nodularity compared to prior study from 2017.. A more focal punctate nodule in the left lower lobe measures 6-7 mm, similar to prior Metallic density is seen at the GE junction. Correlate with any recent foreign body ingestion or recent procedure. D/ / Martínez Pryor MD / Martínez Pryor MD Interpreting Provider: Martínez Pryor MD - Assessment and Plan (1) Exertional chest pain Current Visit: Yes Status: Acute Assessment and plan: Patient has exertional chest pain. Possibly cardiac in nature. Has history of cardiac catheterization but no stents. Cardiac monitoring Continue to trend troponins Echocardiogram in the morning Stress test in the morning (2) Diabetes Current Visit: Yes Status: Acute Assessment and plan: Patient is an insulin dependent diabetic Monitor sugars every 6 hours Nothing by mouth Low dose insulin sliding scale as needed Hold home meds. Qualifiers: Diabetes mellitus type: type 2 Diabetes mellitus vermin exterminator insulin use: with vermin exterminator use Diabetes mellitus complication status: with hyperglycemia Qualified Code(s): E11.65 - Type 2 diabetes mellitus with hyperglycemia; Z79.4 - [facility] (current) use of insulin (3) Barretts esophagus Current Visit: Yes Status: Acute Assessment and plan: Managed outpatient by endoscopy in general surgery. Patient has a microchip implanted in his esophagus. Continue to monitor Qualifiers: Laws's esophagus type: with dysplasia of unspecified degree Qualified Code(s): K22.719 - Laws's esophagus with dysplasia, unspecified; K22.71 - Laws's esophagus with dysplasia (4) Alcohol abuse Current Visit: No Status: Acute Assessment and plan: Patient drinks up to 6 beers daily. His last drink was about 3:00pm yesterday afternoon. No signs of withdrawal at this time. [place] protocol Banana bag Full a casted Thiamine tablet daily (5) Hyponatremia Current Visit: Yes Status: Acute Assessment and plan: Likely secondary to alcohol use. Sodium mildly low at 130. IV fluid hydration Repeat labs in the morning (6) DVT prophylaxis Current Visit: Yes Status: Acute Assessment and plan: Subcutaneous heparin - Time Spent With Patient Total time spent is greater than 50% in coordination of care (as documented) at patient's floor/unit and/or counseling patient: Greater than 35 minutes
[2018-09-21] MEDS ORDERED: 0.9 % Sodium Chloride 1,000 ML IVC ONE (01:04)
[2018-09-21] MEDS ORDERED: *HR* LORazepam 2 MG/ML VIAL IVP PRN ×3 (01:09)
[2018-09-21 04:36] LABS: Hematocrit 36.5 % (37.5-50.1); Hemoglobin 12.5 g/dL (12.9-16.9); Mean Corpuscular HGB Conc 34.2 g/dL (31.6-35.5); Mean Corpuscular Hemoglobin 30.5 pg (28.0-33.3); Mean Platelet Volume 11.8 fL (9.4-12.4); Platelet Count 151 K/mcL (140-400); Red Cell Distribution Width 12.9 % (11.5-14.5); White Blood Count 4.4 K/mcL (4.3-11.1)
[2018-09-21 05:12] LABS: Alanine Aminotransferase 138 Units/L (7-52); Albumin 4.2 g/dL (3.5-5.7); Albumin/Globulin Ratio 1.4 (1.1-2.2); Alkaline Phosphatase 131 Units/L (34-104); Aspartate Amino Transferase 123 Units/L (13-39); BUN/Creatinine Ratio 12 (6-26); Bilirubin,Total 0.3 mg/dL (0.3-1.0); Blood Urea Nitrogen 10 mg/dL (6-20); Calcium 9.1 mg/dL (8.6-10.3); Carbon Dioxide 23 mEq/L (23-29); Chloride 95 mEq/L (98-107); Globulin 2.9 g/dL (2.4-3.5); Glucose 255 mg/dL (70-105); Osmolality,Calculated 278 (280-300); Phosphorous 3.9 mg/dL (2.7-4.5); Potassium 3.8 mEq/L (3.5-5.1); Sodium 130 mEq/L (136-145); Total Protein 7.1 g/dL (6.4-8.9); eGFR For African Americans > 60 (> 60); eGFR For Non-African Americans > 60 (> 60)
[2018-09-21] MEDS: *HR* Heparin 5,000 UNIT/ML VIAL SQ SCH ×2 (05:56→17:27)
[2018-09-21] MEDS ORDERED: Insulin LISPRO 300 UNITS/3 ML VIAL SQ SCH ×2 (06:00→21:00)
[2018-09-21 08:23] LABS: INR 1.1; Prothrombin Time 12.1 Seconds (9.4-12.1)
[2018-09-21] MEDS ORDERED: Regadenoson 0.4 MG/5 ML SYRINGE IVP ONE ×2 (09:33→09:42)
[2018-09-21] MEDS: Thiamine (B-1) 100 MG TABLET PO SCH (12:01)
[2018-09-21] MEDS: Pantoprazole 40 MG VIAL IVP SCH (12:01)
[2018-09-21] MEDS: Vitamin B Complex/Vit C/Vit E 1 EACH TABLET PO SCH (12:01)
[2018-09-21] MEDS: Insulin LISPRO 300 UNITS/3 ML VIAL SQ SCH ×2 (12:01→17:27)
[2018-09-21] MEDS: Folic Acid 1 MG TABLET PO SCH (12:01)
[2018-09-21] MEDS ORDERED: traZODone 50 MG TABLET PO PRN (12:41)
[2018-09-21] MEDS ORDERED: hydrOXYzine pamoate 25 MG CAPSULE PO PRN (12:41)
--- NOTE | 2018-09-21 13:16 | Internal Med Progress Note ---
Hospitalist Progress Note - Encounter Date of Encounter: 09/21/18 Time of Encounter: 13:14 - Subjective Interval History: Patient was seen and examined at bedside. at bedside and all questions answered. Discussed the results of the talus so far however the stress test results are pending. Currently his chest pain has resolved, he is to shortness of breath, palpitations or fever or chills. He reports that he drinks 3-6 beers every day but denies prior history of hospitalization for alcohol withdrawal or alcohol related symptoms. Reports that he was in the shower when he looked chest pain so he decided to come to the emergency department. Currently tolerating by mouth diet. Has received a microchip placed in the esophagus to monitor for GERD for possible surgery as it was seen on CT angiogram of the chest. - Exam Vitals: Temp Pulse Resp BP Pulse Ox 97.8 F 87 16 162/97 93 09/21/18 11:44 09/21/18 11:44 09/21/18 11:44 09/21/18 11:44 09/21/18 11:44 Exam: General: Patient is alert, oriented, no acute distress, obese Head: atraumatic, normocephalic, Eye: normal appearance, PERRL, no scleral icterus, no conjunctival injection ENT: mucous membranes moist, normal external ear exam Neck: normal inspection, trachea midline, full ROM, no carotid bruits Chest: normal inspection, symmetric chest rise Respiratory: Good respiratory effort. Bilateral breath sounds are clear without wheezing, crackles, or rhonchi. Cardiovascular: Regular rate and rhythm. s1 and s2 No clicks, rubs, gallops, or murmors. Abdomen: Bowel sounds present normoactive x-4 quadrants. Abdomen is soft, nondistended. no Epigastric tenderness. No guarding or rebound. No organomegaly noted, obese musculoskeletal: Spontaneously moving all extremities. no edema, no calf tenderness Skin: warm, dry, intact. Neuro: Alert and oriented x3 Sensation light touch intact. Cranial nerves 2-12 is intact. Not aphasic, gait is steady, rapid hand movements intact, fing er-to-nose intact, no tremors on outstretched hand Psych: Patient's affect is normal - Assessment and Plan (1) Exertional chest pain Current Visit: Yes Status: Acute Assessment and Plan: Patient has exertional chest pain. Possibly cardiac in nature. rule out PE Cardiac monitoring troponins negative x 3 Echocardiogram LVEF 55-60%.- full report below Stress test results pending continue with ASA, statin, BB, acei TTE:LVEF 55-60%. Normal LV chamber size, wall thickness and function. Mild left ventricular diastolic dysfunction. Normal right ventricular structure and function. No evidence of pulmonary hypertension. No significant valvular dysfunction. cardiac cath 2016-esion Findings/Interventions * Left Main Coronary Artery The LMCA is angiographically free of disease. * Left Anterior Descending There is a 20% stenosis in the Mid LAD. The lesion has a RACHELLE flow of 3. * Circumflex There is a 30% stenosis in the 1st Marginal. The lesion has a RACHELLE flow of 3. * Right Coronary Artery The RCA is angiographically free of disease. The Right PDA is angiographically free of disease. CTA IMPRESSION: No pulmonary embolus. No pneumonia or edema. There is decreased nodularity compared to prior study from 2017.. A more focal punctate nodule in the left lower lobe measures 6-7 mm, similar to prior Metallic density is seen at the GE junction. Correlate with any recent foreign body ingestion or recent procedure. (2) Hyponatremia Current Visit: Yes Status: Acute Assessment and Plan: Likely secondary to alcohol/beer use along with HCTZ fluid restriction was counseled extensively on alcohol cessation continue to monitor sodium closely (3) Alcohol abuse Current Visit: No Status: Acute Assessment and Plan: Patient drinks up to 6 beers daily. His last drink was about 3:00pm yesterday afternoon. No signs of withdrawal at this time. CIWA protocol Banana bag Full a casted Thiamine tablet daily (4) Diabetes Current Visit: Yes Status: Acute Assessment and Plan: Patient is an insulin dependent diabetic Monitor sugars every 6 hours Nothing by mouth Low dose insulin sliding scale as needed will start him on long acting insulin and increase as needed A1c in AM (5) Barretts esophagus Current Visit: Yes Status: Acute Assessment and Plan: Patient has a microchip implanted in his esophagus for GERD as it was seen on CTA (6) Transaminitis Current Visit: Yes Status: Acute Assessment and Plan: Has history of fatty liver in addition to alcohol use disorder Continue to monitor LFTs closely Right upper quadrant ultrasound We will continue with statins however transaminitis continues to trend up we will hold statins Avoid hepatotoxic medications (7) DVT prophylaxis Current Visit: Yes Status: Acute Assessment and Plan: Subcutaneous heparin - Time Spent with Patient Total time spent is greater than 50% in coordination of care (as documented) at patient's floor/unit and/or counseling patient: 25 - 35 minutes Plan of Care Discussed with: patient Internal Medicine: Result - Labs CBC & Chem 7: 09/21/18 03:31 09/21/18 03:31 Labs: Short CBC 09/20/18 09/21/18 Range/Units 21:30 03:31 WBC 5.7 4.4 (4.3-11.1) K/mcL Hgb 12.9 12.5 L (12.9-16.9) g/dL Hct 37.4 L 36.5 L (37.5-50.1) % Plt Count 169 151 (140-400) K/mcL Neutrophils # 3.4 (1.6-8.9) K/mcL BMP 09/20/18 09/21/18 21:30 03:31 Sodium 130 L 130 L Potassium 3.7 3.8 Chloride 92 L 95 L Carbon Dioxide 17 L 23 BUN 9 10 Creatinine 0.85 0.83 Glucose 286 H 255 H Calcium 9.3 9.1 Cardiac Enzymes 09/20/18 09/21/18 Range/Units 21:30 03:31 Troponin I < 0.03 < 0.03 (< 0.04) ng/mL Liver Function 09/21/18 Range/Units 03:31 Total Bilirubin 0.3 (0.3-1.0) mg/dL AST 123 H (13-39) Units/L ALT 138 H (7-52) Units/L Alkaline Phosphatase 131 H (34-104) Units/L Albumin 4.2 (3.5-5.7) g/dL - ABG Interpretation ABG results: PT/INR, D-dimer PT 12.1 Seconds (9.4-12.1) 09/21/18 07:51 802 ng/mLFEU (0-500) H 09/20/18 21:30 - Impressions Impressions Chest X-Ray 09/20/18 21:19 IMPRESSION: No radiographic evidence of acute cardiopulmonary disease. D/ / Quinn Allen / Quinn Allen Interpreting Provider: Quinn Allen Chest CTA 09/20/18 22:00 IMPRESSION: No pulmonary embolus. No pneumonia or edema. There is decreased nodularity compared to prior study from 2017.. A more focal punctate nodule in the left lower lobe measures 6-7 mm, similar to prior Metallic density is seen at the GE junction. Correlate with any recent foreign body ingestion or recent procedure. D/ / Martínez Pryor MD / Martínez Pryor MD Interpreting Provider: Martínez Pryor MD Echocardiogram 09/21/18 00:37 Impressions: LVEF 55-60%. Normal LV chamber size, wall thickness and function. Mild left ventricular diastolic dysfunction. Normal right ventricular structure and function. No evidence of pulmonary hypertension. No significant valvular dysfunction. Left Ventricular Wall Motion: Rest Echo Findings All wall segments showed normal motion. Findings: Study Quality * Technically sub-optimal due to poor echocardiographic windows. ECG Findings * Normal sinus rhythm. Left Ventricle * LVEF 55-60%. * Normal LV chamber size, wall thickness and function. * Mild left ventricular diastolic dysfunction. Right Ventricle * Normal right ventricular structure and function. Left Atrium * Normal left atrial size. Right Atrium * Normal right atrial size. Aortic Valve * Trileaflet aortic valve. * No aortic regurgitation. * No aortic stenosis. * Normal aortic valve structure. Mitral Valve * Normal mitral valve structure. * No mitral regurgitation. * No mitral stenosis. Tricuspid Valve * No tricuspid regurgitation. * No tricuspid stenosis. * No evidence of pulmonary hypertension. * Normal tricuspid valve structure. Pulmonic Valve * No pulmonic regurgitation. Aorta * Normally sized aortic root. Pericardium * The pericardium appears normal. IVC * The IVC is not well evaluated. Pulmonary Artery * Normal visualized portions of the main pulmonary artery. Consult Discharge Plan - Plan Referrals: NONE,PCP [Primary Care Provider] - ___ (4) Diabetes Qualifiers: Diabetes mellitus type: type 2 Diabetes mellitus assisted insulin use: with moth exterminator use Diabetes mellitus complication status: with hyperglycemia Qualified Code(s): E11.65 - Type 2 diabetes mellitus with hyperglycemia; Z79.4 - terminal operator (current) use of insulin (5) Barretts esophagus Qualifiers: Laws's esophagus type: with dysplasia of unspecified degree Qualified Code(s): K22.719 - Laws's esophagus with dysplasia, unspecified; K22.71 - Laws's esophagus with dysplasia
[2018-09-21] MEDS ORDERED: Thiamine (B-1) 100 MG, Folic Acid 1 MG, MVI, adult with vitamin K 10 ML in 0.9 % Sodi... IVPB SCH (18:00)
[2018-09-21] MEDS: Sucralfate 1 GM TABLET PO SCH (20:34)
[2018-09-21] MEDS: Famotidine 20 MG TABLET PO SCH (20:35)
[2018-09-21] MEDS ORDERED: rOPINIRole 0.25 MG TABLET PO SCH (21:00)
[2018-09-21] MEDS ORDERED: Insulin DETEMIR 100 UNIT/ML X5UNITS SQ SCH (21:00)
[2018-09-22] MEDS: *HR* Heparin 5,000 UNIT/ML VIAL SQ SCH (06:04)
[2018-09-22 06:42] VITALS: BP 149/89
[2018-09-22 06:46] LABS: Estimated Average Glucose 246 mg/dl
[2018-09-22 06:57] LABS: Albumin 4.2 g/dL (3.5-5.7); Albumin/Globulin Ratio 1.4 (1.1-2.2); Bilirubin,Indirect 0.3 mg/dL (0.0-1.2); Bilirubin,Total 0.3 mg/dL (0.3-1.0); Globulin 2.9 g/dL (2.4-3.5); Total Protein 7.1 g/dL (6.4-8.9)
[2018-09-22] MEDS: Sucralfate 1 GM TABLET PO SCH (08:03)
[2018-09-22] MEDS: Famotidine 20 MG TABLET PO SCH (08:03)
[2018-09-22] MEDS: Folic Acid 1 MG TABLET PO SCH (08:04)
[2018-09-22] MEDS: Vitamin B Complex/Vit C/Vit E 1 EACH TABLET PO SCH (08:04)
[2018-09-22] MEDS: Insulin LISPRO 300 UNITS/3 ML VIAL SQ SCH (08:04)
[2018-09-22] MEDS: Thiamine (B-1) 100 MG TABLET PO SCH (08:04)
[2018-09-22] MEDS: Pantoprazole 40 MG VIAL IVP SCH (08:05)
[2018-09-22 08:37] LABS: Triglycerides 972 mg/dL (< 150)
[2018-09-22 08:38] LABS: Amylase 28 Units/L (29-103); BUN/Creatinine Ratio 15 (6-26); Blood Urea Nitrogen 12 mg/dL (6-20); Calcium 8.3 mg/dL (8.6-10.3); Carbon Dioxide 23 mEq/L (23-29); Chloride 98 mEq/L (98-107); Glucose 348 mg/dL (70-105); Lipase 44 Units/L (11-82); Magnesium 1.9 mg/dL (1.6-2.6); Osmolality,Calculated 288 (280-300); Potassium 4.1 mEq/L (3.5-5.1); Sodium 132 mEq/L (136-145); eGFR For African Americans > 60 (> 60); eGFR For Non-African Americans > 60 (> 60)
[2018-09-22 08:40] LABS: Cholesterol 242 mg/dL (< 200)
[2018-09-22 08:42] LABS: Chol/HDL Ratio 11.5 (0-4.9); HDL Cholesterol 21 mg/dL (40-59)
[2018-09-22] MEDS ORDERED: Aspirin 81 MG TAB.CHEW PO SCH (09:00)
[2018-09-22] MEDS ORDERED: Fluticasone Propionate Nasal 50 MCG/SPRAY BOTTLE NS SCH (09:00)
--- NOTE | 2018-09-22 09:04 | Cardiology Consult Note ---
Date of Encounter: 09/22/18 Time of Encounter: 08:50 Assessment and Plan (1) Shortness of breath Current Visit: Yes Status: Ryan Cornejo is a 52-year-old with a primary complaint of intermittent shortness of breath and diaphoresis as described in the history of present illness. Previous LHC from 2016 reviewed and demonstrates mild, nonobstructive CAD. ECGs demonstrated nonspecific changes. Serial troponin measurements negative. TTE and stress test and a straight normal LV function, no evidence of ischemia. CT negative for PE. Currently, the patient denies any symptoms. At this time, there is no compelling indication for further cardiac testing. Recommend ongoing medical therapy and risk factor modification, including complete alcohol cessation. Given his history of mild CAD, aspirin and beta leola therapy are reasonable. Consider holding statin therapy given his possible alcohol abuse and elevated LFTs. All questions were answered. Cardiology will sign off. Please call with any questions or concerns. Discussion w patient/family: The assessment and plan as outlined above was discussed with the patient and/or family members who expressed understanding and agreement. All questions were answered. Thank you for involving us in the care of your patient. Please call with any questions. History of Present Illness Consult date: 09/22/18 Requesting physician: Ada Cabrera Consult reason: Shortness of breath Chief complaint: Shortness of breath History of present illness: Mr. Aguilar is a 52 year old male with a reported history of diabetes, essential hypertension, Alws's esophagus, and asthma. He presents to the hospital with a primary complaint of intermittent shortness of breath and diaphoresis. Patient describes episodes is random, not necessarily associated with activity. He denies associated chest pain or discomfort during my evaluation. Since admission, ECGs demonstrated nonspecific changes, serial troponin measurements are negative. Patient currently denies symptoms resting in his bed. Testing reviewed. TTE demonstrates normal EF, no significant valvular dysfunction. Stress test was negative for ischemia. Previous LHC performed in 2016 demonstrates mild, non-obstructive CAD. Past Med Surg Social Fam HX - Past Medical History Medical history: arthritis, asthma, coronary artery disease, diabetes, GERD, hyperlipidemia, hypertension Additional medical history: barretts disease, anemia, pneumonia, Psychiatric history: anxiety, depression, prior suicide attempt - Past Surgical History Surgical History: knee replacement, other Additional surgical history: cardiac cath, finger surgery, EGD - Social History Smoking Status: Never smoker Smokeless Tobacco Status: Yes Alcohol use: heavy, recent Drug use: none - Family History Father Living Status: Still Living Hx Family Cardiac Disorders: Yes (4way bypass at age 45) Brother Living Status: Still Living Hx Family Cardiac Disorders: Yes ([place]/Stents at 48) Mother Living Status: Cause of : 61 Hx Family Neurologic Disorders: Yes (CVA x2, multiple TIAs) Medications and Allergies Albuterol Sulfate [Proair Hfa] 2 puff IH Q4H PRN #1 hfa.aer.ad 03/15/17 [Rx] Aspirin 81 mg PO DAILY #30 tab.chew 03/15/17 [Rx] Atorvastatin [Lipitor] 80 mg PO HS #60 tablet 03/15/17 [Rx] Escitalopram [Lexapro] 20 mg PO DAILY #60 tablet 03/15/17 [Rx] Fluticasone Propionate Nasal [Flonase] 100 mcg NS DAILY #1 bottle 03/15/17 [Rx] Insulin Glargine,Hum.rec.anlog [Basaglar Kwikpen U-100] 80 unit SQ HS #1 insuln.pen 03/15/17 [Rx] Lisinopril/Hydrochlorothiazide [Zestoretic 20-12.5 mg Tablet] 1 each PO DAILY #30 tablet 03/15/17 [Rx] Metformin HCl [Metformin ER Gastric] 2,000 mg PO DAILY #120 [id number] 03/15/17 [Rx] Montelukast [Singulair] 10 mg PO DAILY #30 tablet 03/15/17 [Rx] Pantoprazole Sodium 40 mg PO DAILY #30 tablet.dr 03/15/17 [Rx] Propranolol HCl 40 mg PO BID #60 tablet 03/15/17 [Rx] Ranitidine HCl [Zantac] 300 mg PO BID #60 tablet 03/15/17 [Rx] Sucralfate [Carafate] 1 gm PO BID #60 tablet 03/15/17 [Rx] hydrOXYzine pamoate [HydrOXYzine Pamoate] 50 mg PO TID PRN #90 capsule 03/15/17 [Rx] traZODone [TraZODone] 50 mg PO HS PRN #30 tablet 03/15/17 [Rx] Allergy/AdvReac Type Severity Reaction Status Date / Time No Known Allergies Allergy Verified 03/12/17 10:39 All Systems Review: The remainder of the systems were reviewed and are negative - Cardiovascular Cardiovascular: as per HPI, diaphoresis - Respiratory Respiratory: other (Shortness of breath) Physical Examination Vital Signs, Last 4 Hours Temp Pulse Resp BP Pulse Ox 09/22/18 06:42 97.7 F 70 16 149/89 95 General: Conversant, No Apparent Distress HEENT: Atraumatic, Normocephaly, Mucus Membranes Moist Neck: No JVD, Normal carotid pulses Cardiac: Reg Rate and Rhythm, Normal S1 and S2, No Murmur Lungs: Normal Breath Sounds, No Wheeze, Rales, Rhonchi Neuro: Alert and responsive, No focal deficits noted Abdomen: Soft, Non-Tender Skin: No rashes noted on visualized skin Musculoskeletal: No Chest Wall Tenderness Extremities: No Clubbing, No Cyanosis, No Edema, Normal Pulses Results 09/21/18 03:31 09/22/18 05:38 Lab Results 09/21/18 09/22/18 09/22/18 16:58 05:38 05:38 Sodium 132 L Potassium 4.1 Chloride 98 Carbon Dioxide 23 BUN 12 Creatinine 0.80 Glucose 348 H Calcium 8.3 L Magnesium 1.9 Total Bilirubin 0.3 AST 90 H ALT 112 H Alkaline Phosphatase 130 H Troponin I < 0.03 Amylase 28 L Lipase 44 - Imaging and Cardiology Stress Test: report reviewed, image reviewed Echo: report reviewed, image reviewed Cardiac cath: report reviewed, image reviewed - EKG Interpretation EKG results cardiology: personally reviewed Consult Discharge Plan - Plan Referrals: NONE,PCP [Primary Care Provider] -
[2018-09-22] MEDS ORDERED: Fenofibrate 54 MG TABLET PO SCH (09:45)
--- NOTE | 2018-09-22 09:52 | Discharge Summary ---
- NOTES TO OUTPATIENT PROVIDER Notes to Outpatient Provider: follow up lipid pnale in 4 weeks and adjust medication as per lipid panel. follow glucose logs adn adjust insulin A1c was 10. follow BMP and LFTs in 5 days and consider holding lipitor if LFTS trend up. Orders not resulted at time of discharge: Pending orders 09/20/18 21:19 ECG 12 lead ECG [ECG] Stat 09/21/18 00:41 NM mat perf SPECT multi [NM] Routine Date of Encounter: 09/22/18 Time of Encounter: 09:47 - Discharge Diagnosis (1) Exertional chest pain Priority: Primary Status: Acute (2) Hyponatremia Priority: Secondary Status: Acute (3) Alcohol abuse Priority: Secondary Status: Acute (4) Diabetes Priority: Secondary Status: Acute Qualifiers: Diabetes mellitus type: type 2 Diabetes mellitus residential insulin use: with emt intermediate use Diabetes mellitus complication status: with hyperglycemia Qualified Code(s): E11.65 - Type 2 diabetes mellitus with hyperglycemia; Z79.4 - [facility] (current) use of insulin (5) Barretts esophagus Priority: Secondary Status: Acute Qualifiers: Laws's esophagus type: with dysplasia of unspecified degree Qualified Code(s): K22.719 - Laws's esophagus with dysplasia, unspecified; K22.71 - Laws's esophagus with dysplasia (6) Transaminitis Priority: Secondary Status: Acute (7) DVT prophylaxis Priority: Secondary Status: Acute (8) Hypertriglyceridemia Priority: Secondary Status: Acute (9) Hyperlipidemia Priority: Secondary Status: Acute Qualifiers: Hyperlipidemia type: mixed hyperlipidemia Qualified Code(s): E78.2 - Mixed hyperlipidemia Hospital course: "Mr. Aguilar is a 52 year old male Patient presented to the emergency department for evaluation of chest pain that has been intermittent for the last several months. He particularly has the pain with exertion, and is associated with diaphoresis as well. If he relaxes the pain improves. He has not tried anything else to help with alleviating the pain his has been trying to convince him to come to the hospital to be checked out but he had not up until this point. He says that he has just been too busy to come in. He has a history of cardiac catheter in the past but no stents were placed. In the emergency room patient's initial vital signs demonstrated a slightly elevated heart rate in the low 100s, otherwise within normal limits CBC: Within normal limits BMP: Sodium of 130 and glucose of 286 otherwise within normal limits. D-dimer elevated at 802 Troponin undetectable Chest x-ray showed no acute cardiopulmonary disease CT angiogram demonstrated no pulmonary embolus, pneumonia, edema there was a finding of a metallic density at the GE junction correlating with recent microchip insertion for evaluation of hiatal hernia and Laws's esophagus by endoscopy team a few days ago. EKG showed sinus tachycardia with a rate of 109. QTC of 531. No ischemic changes The emergency department gave the patient to 24 mg of aspirin, a GI cocktail, nitroglycerin. Patient was chest pain-free upon arrival. He was admitted to the hospital for further management. Upon my evaluation, patient is resting comfortably in the ER bed in no acute distress. He denies chest pain, abdominal pain, nausea, vomiting, diarrhea and constipation. He has significant past family history of heart disease, his father had a heart attack and it quadruple bypass at the age of 45. His brother had a heart attack while he was in his 50s. His mother had history of strokes. He is a full code." Patient presented with above presentation and had above ED course. He was monitored on telemetry, troponins were followed and negative 3. Echocardiogram performed without wall motion abnormalitiesfull report below. Stress test was negative. cadiology was consulted and recommended "ongoing medical therapy and risk factor modification, including complete alcohol cessation." He was started on CIWA protocol, thiamine and folic acid from admission. no signs of withdrawal. A1c was found to be 10.2 so he was started on insulin sliding scale in addition to his long-acting insulin and metformin. He understands take glucose log to primary care physician for further adjustment of his insulins. Lipid panel showed hypertriglyceridemia 972 with cholesterol of 242. Lipitor dose was decreased to 40 mg and he was started on phenyl fibroid he understands that if he develops muscle aches or pains he is to follow-up immediately with his primary care doctor and to stop taking Lipitor and fenofibrate. Lipid panel is to be repeated in 4 weeks and per PCP to adjust medications as per their discretion. To follow LFTs in 5 days and consider stopping Lipitor and fibrates as per LFTs. Right upper quadrant ultrasound showed hepatic steatosis which is chronic as per patient. He was counseled extensively on alcohol cessation diet and exercise and he understands. he was counseled extensively on medication compliance and his was at bedside and they understand. he understands that having high TG places him at risk of pancreatitis ( lipase was 44 and amylase 28)he understands that he will need to have liver enzymes repeated as he is on both Statins and fibrates and he is to avoid alcohol. his HCTZ was discontinued due to hyponatremia on presentation which improved. his hyponatremia is likely from alcohol ( beer) he was again counseled extensively for PCP to follow BMP in 5 days nuclear stress test: Perfusion imaging was negative for ischemia or infarct. Pharmacologic stress ECG is non diagnostic for ischemia due to baseline non-specific ST and T changes. Gated EF = 69%. TTE: Impressions: LVEF 55-60%. Normal LV chamber size, wall thickness and function. Mild left ventricular diastolic dysfunction. Normal right ventricular structure and function. No evidence of pulmonary hypertension. No significant valvular dysfunction. CTA No pulmonary embolus. No pneumonia or edema. There is decreased nodularity compared to prior study from 2017.. A more focal punctate nodule in the left lower lobe measures 6-7 mm, similar to prior Metallic density is seen at the GE junction. Correlate with any recent foreign body ingestion or recent procedure. Discharge discussed with: patient, family, nurse, [employer] ax consultant - Time Spent with Patient Total time spent providing and/or coordinating discharge services: Time spent: Greater than 30 minutes (35) - Discharge Medications Prescriptions: New Folic Acid 1 mg PO DAILY #30 tablet Fenofibrate [Tricor] 108 mg PO DAILY #30 tablet Thiamine (B-1) [Vitamin B-1] 100 mg PO DAILY #30 tablet Insulin LISPRO [Humalog Kwikpen U-100] 0 unit SQ ACHS #1 pack Lisinopril [Zestril] 20 mg PO DAILY #30 tablet Continued Escitalopram [Lexapro] 20 mg PO DAILY #60 tablet hydrOXYzine pamoate [HydrOXYzine Pamoate] 50 mg PO TID PRN #90 capsule PRN Reason: Anxiety traZODone [TraZODone] 50 mg PO HS PRN #30 tablet PRN Reason: Insomnia Albuterol Sulfate [Proair Hfa] 2 puff IH Q4H PRN #1 hfa.aer.ad PRN Reason: Shortness Of Breath Aspirin 81 mg PO DAILY #30 tab.chew Fluticasone Propionate Nasal [Flonase] 100 mcg NS DAILY #1 bottle Insulin Glargine,Hum.rec.anlog [Basaglar Kwikpen U-100] 80 unit SQ HS #1 insuln.pen Metformin HCl [Metformin ER Gastric] 2,000 mg PO DAILY #120 [id number] Montelukast [Singulair] 10 mg PO DAILY #30 tablet Pantoprazole Sodium 40 mg PO DAILY #30 tablet. Propranolol HCl 40 mg PO BID #60 tablet Ranitidine HCl [Zantac] 300 mg PO BID #60 tablet Sucralfate [Carafate] 1 gm PO BID #60 tablet Changed Atorvastatin [Lipitor] 40 mg PO HS #30 tablet Discontinued Lisinopril/Hydrochlorothiazide [Zestoretic 20-12.5 mg Tablet] 1 each PO DAILY #30 tablet Home Medications: Albuterol Sulfate [Proair Hfa] 2 puff IH Q4H PRN #1 hfa.aer.ad 03/15/17 [Rx] Aspirin 81 mg PO DAILY #30 tab.chew 03/15/17 [Rx] Escitalopram [Lexapro] 20 mg PO DAILY #60 tablet 03/15/17 [Rx] Fluticasone Propionate Nasal [Flonase] 100 mcg NS DAILY #1 bottle 03/15/17 [Rx] Insulin Glargine,Hum.rec.anlog [Basaglar Kwikpen U-100] 80 unit SQ HS #1 insuln.pen 03/15/17 [Rx] Metformin HCl [Metformin ER Gastric] 2,000 mg PO DAILY #120 [id number] 03/15/17 [Rx] Montelukast [Singulair] 10 mg PO DAILY #30 tablet 03/15/17 [Rx] Pantoprazole Sodium 40 mg PO DAILY #30 tablet. 03/15/17 [Rx] Propranolol HCl 40 mg PO BID #60 tablet 03/15/17 [Rx] Ranitidine HCl [Zantac] 300 mg PO BID #60 tablet 03/15/17 [Rx] Sucralfate [Carafate] 1 gm PO BID #60 tablet 03/15/17 [Rx] hydrOXYzine pamoate [HydrOXYzine Pamoate] 50 mg PO TID PRN #90 capsule 03/15/17 [Rx] traZODone [TraZODone] 50 mg PO HS PRN #30 tablet 03/15/17 [Rx] Atorvastatin [Lipitor] 40 mg PO HS #30 tablet 09/22/18 [Rx] Fenofibrate [Tricor] 108 mg PO DAILY #30 tablet 09/22/18 [Rx] Folic Acid 1 mg PO DAILY #30 tablet 09/22/18 [Rx] Insulin LISPRO [Humalog Kwikpen U-100] 0 unit SQ ACHS #1 pack 09/22/18 [Rx] Lisinopril [Zestril] 20 mg PO DAILY #30 tablet 09/22/18 [Rx] Thiamine (B-1) [Vitamin B-1] 100 mg PO DAILY #30 tablet 09/22/18 [Rx] Allergies/Adverse Reactions: Allergy/AdvReac Type Severity Reaction Status Date / Time No Known Allergies Allergy Verified 03/12/17 10:39 Date of admission: 09/20/18 23:33 Primary care physician: PCP NONE Consults: 09/21/18 01:09 Consult to [employer] [CONS] Routine Reason for SW Consult: Alcoholism 09/22/18 07:25 Consult to Cardiology [CONS] Routine Comment: Consulting Provider: Cardiology Jaye Reason for Consult: patinet and are requesting that cardiology see them in the hospital, stress test negative, echo WNL. however continues to have chest pa in on exertion Call Completed: No - Constitutional Vitals: Temp Pulse Resp BP Pulse Ox 97.7 F 70 16 149/89 95 09/22/18 06:42 09/22/18 06:42 09/22/18 06:42 09/22/18 06:42 09/22/18 06:42 Exam: General: Patient is alert, oriented, no acute distress, obese Head: atraumatic, normocephalic, Eye: normal appearance, PERRL, no scleral icterus, no conjunctival injection ENT: mucous membranes moist, normal external ear exam Neck: normal inspection, trachea midline, full ROM, no carotid bruits Chest: normal inspection, symmetric chest rise Respiratory: Good respiratory effort. Bilateral breath sounds are clear without wheezing, crackles, or rhonchi. Cardiovascular: Regular rate and rhythm. s1 and s2 No clicks, rubs, gallops, or murmors. Abdomen: Bowel sounds present normoactive x-4 quadrants. Abdomen is soft, nondistended. no Epigastric tenderness. No guarding or rebound. No org anomegaly noted, obese musculoskeletal: Spontaneously moving all extremities. no edema, no calf tenderness Skin: warm, dry, intact. Neuro: Alert and oriented x3 Sensation light touch intact. Cranial nerves 2-12 is intact. Not aphasic, gait is steady, rapid hand movements intact, [id number] intact, no tremors on outstretched hand Psych: Patient's affect is normal - Patient Status Disposition: Home, Self-Care Condition: Fair Functional capacity at discharge: independent ambulation Overall status at discharge: patient is progressing back to baseline - Discharge Instructions Follow Up With: NONE,PCP [Primary Care Provider] - Additional Instructions: follow up lipid panel in 4 weeks and adjust medication as per lipid panel take glucose log to your PCP for further adjustment of your insulin follow BMP and LFTs in 5 days if you develop muscle aches stop lipitor and fenofibrate and call your PCP immediately - Diet and Activity Activity: increase activity as tolerated Diet: diabetic diet, low fat, low cholesterol, low salt diet
[2018-09-22] MEDS ORDERED: Insulin DETEMIR 100 UNIT/ML X5UNITS SQ SCH (21:00)
--- NOTE | 2018-09-23 12:24 | Electrocardiograph Report ---
[employer] Test Date: 2018-09-20 Pat Name: Rick Aguilar Department: EXAM17 Room: Gender: Referral Specialist: : [id number] Requested By: Nando Alves Order Number: [id number] Reading MD: Clay Moran Measurements Intervals [place] Rate: 109 P: 33 SC: 138 QRS: 87 QRSD: 103 T: -65 QT: 394 QTc: 531 Interpretive Statements Sinus tachycardia Inferior ST/T changes, consider ischemia, correlate clinically Prolonged QT interval Electronically Signed On 09-23-2018 12:23:23 EDT by Clay Moran
== END 2018-09-22 11:00 | disposition home or self-care (01) ==
LOC: EMEROOARM 21:18 → 3BNU 21:18 → SUATTDRO 23:33 → 3BNU 09-21 00:12
PROVIDERS: ADMIT Family Medicine; ATTEND Internal Medicine

== ENCOUNTER 2020-04-12 00:54 | Observation (INO) ==
[2020-04-12] MEDS ORDERED: 0.9 % Sodium Chloride 1,000 ML IVC ONE (01:13)
[2020-04-12] MEDS ORDERED: Tdap (Boostrix) Vaccine 0.5 ML SYRINGE IM ONE (01:17)
[2020-04-12 01:20] LABS: Basophils % 1.1 %; Eosinophils % 1.1 %; Hematocrit 39.6 % (37.5-50.1); Hemoglobin 12.6 g/dL (12.9-16.9); Lymphocytes # 1.2 K/mcL (0.6-4.6); Lymphocytes % 32.8 %; Mean Corpuscular HGB Conc 31.8 g/dL (31.6-35.5); Mean Corpuscular Volume 91.2 fL (83.0-100.0); Mean Platelet Volume 11.5 fL (9.4-12.4); Monocytes # 0.3 K/mcL (0.0-1.3); Monocytes % 7.7 %; Neutrophils # 2.2 K/mcL (1.6-8.9); Platelet Count 101 K/mcL (140-400); Red Blood Count 4.34 M/mcL (4.19-5.50); Segmented Neutrophils % 57.3 %; White Blood Count 3.8 K/mcL (4.3-11.1)
[2020-04-12 01:32] LABS: Acetaminophen < 10 mcg/mL (10-20); Alanine Aminotransferase 108 Units/L (7-52); Albumin 4.2 g/dL (3.5-5.7); Albumin/Globulin Ratio 1.1 (1.1-2.2); Alkaline Phosphatase 141 Units/L (34-104); Aspartate Amino Transferase 74 Units/L (13-39); BUN/Creatinine Ratio 13 (6-26); Bilirubin,Direct 0.1 mg/dL (0.0-0.2); Bilirubin,Indirect 0.2 mg/dL (0.0-1.0); Bilirubin,Total 0.3 mg/dL (0.3-1.0); Blood Urea Nitrogen 9 mg/dL (6-20); Calcium 8.7 mg/dL (8.6-10.3); Carbon Dioxide 21 mEq/L (23-29); Chloride 101 mEq/L (98-107); Ethanol 207 mg/dL (Less than 10); Globulin 3.7 g/dL (2.4-3.5); Glucose 251 mg/dL (70-105); Osmolality,Calculated 287 (280-300); Salicylate < 2.5 mg/dL (15.0-30.0); Sodium 135 mEq/L (136-145); Total Protein 7.9 g/dL (6.4-8.9); eGFR For African Americans > 60 (> 60); eGFR For Non-African Americans > 60 (> 60)
[2020-04-12 01:51] LABS: Bilirubin,Urine Negative (Negative); Blood,Urine Negative (Negative); Clarity,Urine Clear (Clear); Color,Urine Light-Yellow (Yellow); Glucose,Urine (UA) 500 mg/dL (Normal); Ketones,Urine Negative (Negative); Leukocyte Esterase,Urine Negative (Negative); Mucus,Urine Few per lpf (None-Few); Nitrite,Urine Negative (Negative); PH,Urine 5.5 pH Units (5.0-8.0); Protein,Urine Negative (Neg-Trace); RBC,Urine 0-3 per hpf (0-3); Specific Gravity,Urine 1.014 (1.010-1.025); Urobilinogen,Urine Normal (Normal); WBC,Urine 0-3 per hpf (0-3)
[2020-04-12 02:05] LABS: Amphetamine Screen,Urine Negative ng/mL (Cutoff=1000); Barbiturate Screen,Urine Negative ng/mL (Cutoff=200); Benzodiazepines Screen,Urine Negative ng/mL (Cutoff=200); Cannabinoid Screen,Urine Negative ng/mL (Cutoff = 50); Cocaine Screen,Urine Negative ng/mL (Cutoff= 300); Opiate Screen,Urine Positive ng/mL (Cutoff=300); Phencyclidine Screen,Urine Negative ng/mL (Cutoff=25)
[2020-04-12] MEDS ORDERED: *HR* LORazepam 1 MG TABLET PO PRN (11:16)
[2020-04-12] MEDS ORDERED: Mag Hydrox/Al Hydrox/Simeth 30 ML UDC PO PRN (11:16)
[2020-04-12] MEDS ORDERED: *HR* LORazepam 2 MG/ML VIAL IM PRN (11:16)
[2020-04-12] MEDS ORDERED: Nicotine 2 MG GUM BC PRN (11:16)
[2020-04-12] MEDS ORDERED: haloperidoL 5 MG TABLET PO PRN (11:16)
[2020-04-12] MEDS ORDERED: Acetaminophen 325 MG TABLET PO PRN (11:16)
[2020-04-12] MEDS ORDERED: hydrOXYzine pamoate 25 MG CAPSULE PO PRN (11:16)
[2020-04-12] MEDS ORDERED: Haloperidol Lactate 5 MG/ML VIAL IM PRN (11:16)
[2020-04-12] MEDS ORDERED: MOM Conc 10 ML UD.LIQ PO PRN (11:16)
[2020-04-12] MEDS ORDERED: QUEtiapine Fumarate 25 MG TABLET PO PRN (11:16)
[2020-04-12] MEDS ORDERED: Nitroglycerin 0.4 MG TAB.SUBL SL ONE ×2 (12:22→12:26)
[2020-04-12] MEDS ORDERED: Aspirin 81 MG TAB.CHEW ONE (12:24)
[2020-04-12] MEDS ORDERED: Aspirin 81 MG TAB.CHEW PO ONE (12:24)
[2020-04-12] MEDS ORDERED: Morphine Sulfate 2 MG/ML SYRINGE ONE (12:28)
[2020-04-12] MEDS ORDERED: Isovue-370 500 ML BOTTLE IVP ONE ×2 (12:39→12:58)
[2020-04-12] MEDS ORDERED: *HR* Metoprolol 5 MG/5 ML VIAL IVP ONE (12:42)
[2020-04-12] MEDS ORDERED: Morphine Sulfate 2 MG/ML SYRINGE IVP STA ×2 (12:42→12:46)
[2020-04-12 13:15] LABS: INR 1.2; Prothrombin Time 13.6 Seconds (9.4-12.1)
[2020-04-12 13:18] LABS: Basophils % 0.7 %; Eosinophils # 0.1 K/mcL (0.0-0.6); Eosinophils % 1.4 %; Hematocrit 38.6 % (37.5-50.1); Hemoglobin 12.4 g/dL (12.9-16.9); Immature Granulocytes % 0.2 % (0-4); Lymphocytes % 25.1 %; Mean Corpuscular HGB Conc 32.1 g/dL (31.6-35.5); Mean Corpuscular Hemoglobin 28.8 pg (28.0-33.3); Mean Corpuscular Volume 89.6 fL (83.0-100.0); Mean Platelet Volume 12.1 fL (9.4-12.4); Monocytes # 0.4 K/mcL (0.0-1.3); Monocytes % 9.6 %; Neutrophils # 2.6 K/mcL (1.6-8.9); Platelet Count 112 K/mcL (140-400); Red Blood Count 4.31 M/mcL (4.19-5.50); Red Cell Distribution Width 13.1 % (11.5-14.5); White Blood Count 4.2 K/mcL (4.3-11.1)
[2020-04-12 13:21] LABS: Alkaline Phosphatase 129 Units/L (34-104); BUN/Creatinine Ratio 15 (6-26); Blood Urea Nitrogen 10 mg/dL (6-20); Calcium 9.3 mg/dL (8.6-10.3); Carbon Dioxide 24 mEq/L (23-29); Chloride 101 mEq/L (98-107); Glucose 260 mg/dL (70-105); Magnesium 1.7 mg/dL (1.6-2.6); Osmolality,Calculated 286 (280-300); Sodium 134 mEq/L (136-145); eGFR For African Americans > 60 (> 60); eGFR For Non-African Americans > 60 (> 60)
[2020-04-12] MEDS ORDERED: Perflutren Lipid Microsphere 1.3 ML in 0.9 % Sodium Chloride 8.7 ML IVP PRN (13:23)
[2020-04-12] MEDS ORDERED: *HR* Dextrose 50 % in Water (Vial) 50 ML VIAL IVP PRN (13:27)
[2020-04-12] MEDS ORDERED: Dextrose Gel 15 GM/37.5 ML TUBE PO PRN ×2 (13:27)
[2020-04-12] MEDS ORDERED: D5% in Water 1,000 ML IVC PRN (13:27)
[2020-04-12 13:28] LABS: Troponin I < 0.03 ng/mL (< 0.04)
[2020-04-12 14:01] LABS: Estimated Average Glucose 240 mg/dl
[2020-04-12] MEDS ORDERED: lisinopriL 10 MG TABLET PO ONE (14:26)
[2020-04-12] MEDS ORDERED: *HR* LORazepam 2 MG/ML VIAL IVP PRN ×3 (16:56→17:03)
[2020-04-12] MEDS ORDERED: amLODIPine 5 MG TABLET PO ONE (17:01)
[2020-04-12] MEDS: Folic Acid 1 MG in 0.9 % Sodium Chloride 50 ML IVPB SCH (17:57)
[2020-04-12] MEDS: Thiamine (B-1) 200 MG in 0.9 % Sodium Chloride 50 ML IVPB SCH (17:57)
[2020-04-12] MEDS: Insulin LISPRO 300 UNITS/3 ML VIAL SUBQ SCH (18:04)
[2020-04-12] MEDS ORDERED: Insulin DETEMIR 100 UNIT/ML X5UNITS SUBQ SCH (21:00)
[2020-04-12] MEDS ORDERED: Insulin LISPRO 300 UNITS/3 ML VIAL SUBQ SCH (21:00)
[2020-04-13 00:42] LABS: Basophils % 0.8 %; Immature Granulocytes % 0.3 % (0-4)
[2020-04-13 00:44] LABS: Eosinophils # 0.1 K/mcL (0.0-0.6); Eosinophils % 2.6 %; Hematocrit 36.7 % (37.5-50.1); Hemoglobin 11.7 g/dL (12.9-16.9); Lymphocytes # 1.2 K/mcL (0.6-4.6); Lymphocytes % 30.8 %; Mean Corpuscular HGB Conc 31.9 g/dL (31.6-35.5); Mean Corpuscular Hemoglobin 28.7 pg (28.0-33.3); Mean Platelet Volume 12.3 fL (9.4-12.4); Monocytes # 0.4 K/mcL (0.0-1.3); Monocytes % 10.9 %; Neutrophils # 2.1 K/mcL (1.6-8.9); Red Blood Count 4.08 M/mcL (4.19-5.50); Segmented Neutrophils % 54.6 %; White Blood Count 3.9 K/mcL (4.3-11.1)
[2020-04-13 00:52] LABS: Platelet Count 93 K/mcL (140-400)
[2020-04-13 01:02] LABS: Albumin 3.6 g/dL (3.5-5.7); Albumin/Globulin Ratio 1.2 (1.1-2.2); BUN/Creatinine Ratio 17 (6-26); Bilirubin,Direct 0.1 mg/dL (0.0-0.2); Bilirubin,Indirect 0.5 mg/dL (0.0-1.0); Bilirubin,Total 0.6 mg/dL (0.3-1.0); Blood Urea Nitrogen 13 mg/dL (6-20); Calcium 8.5 mg/dL (8.6-10.3); Carbon Dioxide 25 mEq/L (23-29); Chloride 101 mEq/L (98-107); Globulin 3.1 g/dL (2.4-3.5); Glucose 274 mg/dL (70-105); Magnesium 1.8 mg/dL (1.6-2.6); Osmolality,Calculated 288 (280-300); Phosphorous 3.8 mg/dL (2.7-4.5); Potassium 3.7 mEq/L (3.5-5.1); Sodium 134 mEq/L (136-145); Total Protein 6.7 g/dL (6.4-8.9); eGFR For African Americans > 60 (> 60); eGFR For Non-African Americans > 60 (> 60)
[2020-04-13] MEDS ORDERED: Regadenoson 0.4 MG/5 ML SYRINGE IVP ONE (06:06)
[2020-04-13] MEDS ORDERED: Aspirin 81 MG TAB.CHEW PO SCH (09:00)
[2020-04-13] MEDS ORDERED: amLODIPine 5 MG TABLET PO SCH (09:00)
[2020-04-13] MEDS ORDERED: lisinopriL 20 MG TABLET PO SCH (09:00)
[2020-04-13 10:24] VITALS: BP 150/88
[2020-04-13] MEDS: Folic Acid 1 MG in 0.9 % Sodium Chloride 50 ML IVPB SCH (10:29)
[2020-04-13] MEDS: Thiamine (B-1) 200 MG in 0.9 % Sodium Chloride 50 ML IVPB SCH (10:29)
[2020-04-13] MEDS: Insulin LISPRO 300 UNITS/3 ML VIAL SUBQ SCH ×2 (10:34→11:16)
[2020-04-13] MEDS ORDERED: Nicotine 21 MG PATCH.TD24 TD SCH (10:45)
== END 2020-04-13 15:56 | disposition home or self-care (01) ==
LOC: EMEROOARM 00:54 → 2ANU 00:54 → 1ANU 11:08 → SUATTDRO 13:48 → 2ANU 14:48
PROVIDERS: ADMIT Internal Medicine; ATTEND Internal Medicine